=== PATIENT | male | born 1935 | race Caucasian/White ===

== ENCOUNTER 2025-03-18 23:50 | Observation (INO) | payer MEDICARE, SELFPAY ==
--- NOTE | ~2025-03-18 | XR_ITS ---
CHEST RADIOGRAPH, PA AND LATERAL CLINICAL HISTORY: weakness fall . COMPARISON: None available TECHNIQUE: PA and lateral views of the chest. FINDINGS The cardiomediastinal silhouette is enlarged. The lungs are clear. IMPRESSION: No focal infiltrate or effusion. Reviewed, dictated and finalized at location A.
--- NOTE | ~2025-03-18 | XR_ITS ---
EXAM: XR hip BI 2V w AP pelvis DATE: 03/19/2025 16:27 HISTORY: Bilateral hip pain . COMPARISON: None available. FINDINGS: Severe multilevel lumbar degenerative disc disease. Osteopenia. Mild bilateral hip osteoar thritis. Mild scattered enthesopathy. No fracture or dislocation. No lytic or blastic lesion. IMPRESSION: No acute osseous finding in the pelvis or bilateral hips. Reviewed, dictated and finalized at location K.
--- NOTE | ~2025-03-18 | CT_ITS ---
History: Fall PROCEDURE: CT head without contrast. COMPARISON: None TECHNIQUE: Axial imaging of the head performed from the skull base to the vertex without IV contrast. Sagittal a nd coronal reformations obtained. DLP: 681 mGy-cm FINDINGS: The ventricles are enlarged. The dilatation of the ventricles is proportional to the degree of sulcal prominence, not uncommon in the senescent brain. Decreased attenuation is identified within the periventricular white matter, likely secondary to micr ovascular ischemic disease, in a patient of this age. There is no mass, mass effect or midline shift. There is no abnormal extra-axial fluid collection or intracranial hemorrhage. Visualized paranasal sinuses are clear. The mastoid air cells are well aerated. No acute displaced fractures within the overlying cranium. Impression: No acute intracranial hemorrhage or suspicious mass effect. Reviewed, dictated and finalized at location A. Impression: No acute intracranial hemorrhage or suspicious mass effect.
--- NOTE | ~2025-03-18 | XR_ITS ---
HISTORY: Fall COMPARISON: None TECHNIQUE: 3 views of the left knee were performed FINDINGS: No acute or subacute fracture. Medial and lateral tibiofemoral joint space narrowing is identified with sclerosis. No suprapatellar joint effusion is identified. The infrapatellar joint space is clear. IMPRESSION: Degenerative disease without acute fracture. Reviewed, dictated and finalized at location A.
--- NOTE | ~2025-03-18 | XR_ITS ---
HISTORY: Fall COMPARISON: None TECHNIQUE: 3 views of the right knee were performed FINDINGS: No acute or subacute fracture. Medial and lateral tibiofemoral joint space narrowing is identified with sclerosis. No suprapatellar joint effusion is identified. The infrapatellar joint space is clear. IMPRESSION: Degenerative disease without acute fracture. Reviewed, dictated and finalized at location A.
[2025-03-18 23:52] VITALS: BP 145/83; PULSE 83; RESP 18; TEMP 36.2; O2SAT 94
[2025-03-19 00:19] LABS: Hematocrit 41.8 % (42.0-52.0); Hemoglobin 14.0 g/dL (14.0-18.0); Immature Granulocyte Percent A 0.8 % (0-0.5); Lymphocytes Absolute Auto 0.81 K/mm3 (0.9-3.2); Mean Corpuscular HGB Conc 33.5 g/dl (32-36); Mean Corpuscular Hemoglobin 31.3 pg (26-34); Mean Corpuscular Volume 93.3 fl (80-100); Nucleated Red Blood Cells Absolute Auto 0.000 K/mm3 (0.0-0.012); Nucleated Red Blood Cells Perc 0.0 % (0.0-0.2); Platelet Count Result 288 k/mm3 (150-375); Red Blood Count 4.48 M/mm3 (4.6-6.20); White Blood Count 10.6 K/mm3 (4.5-10.0)
[2025-03-19 00:26] LABS: Alanine Aminotransferase 36 U/L (6-50); Albumin Level 4.0 g/dL (3.5-5.1); Alkaline Phosphatase 141 U/L (38-126); Anion Gap 6 mmol/L (4-12); Aspartate Amino Transferase 34 U/L (17-59); Bilirubin,Total 0.7 mg/dL (0.2-1.3); Blood Urea Nitrogen 16 mg/dL (9-20); Calcium 9.3 mg/dL (8.4-10.2); Carbon Dioxide 26 mmol/L (22-30); Chloride 97 mmol/L (98-107); Estimated CRCL calculation 57 ml/min; Estimated Glomerular Filt Rate > 60; Glucose 100 mg/dL (65-110); Potassium 4.2 mmol/L (3.4-5.0); Sodium 129 mmol/L (137-145); Total Protein 6.8 g/dL (6.3-8.2)
[2025-03-19 00:38] LABS: Add Urine Microscopic? YES; Appearance Urine Clear (Clear); Glucose Urine UA Negative (Negative); Leukocyte Esterase Ur 1+ LEU/UL (Negative); Nitrate Urine Negative (Negative); Specific Grav Ur 1.018 (1.001-1.035)
[2025-03-19 00:39] LABS: Non Pathogenic Casts 0-2
--- NOTE | 2025-03-19 00:42 | ECG_ITS ---
Test Date: 2025-03-19 00:42:29 Measurements Intervals [place] Rate: 75 P: 32 PA: 172 QRS: -15 QRSD: 150 T: -12 QT: 419 QTc: 471 Interpretive Statements SINUS RHYTHM RIGHT BUNDLE BRANCH BLOCK [120+ ms QRS DURATION, UPRIGHT V1, 40+ ms S IN I/aVL/V4/V5/V6] ABNORMAL ECG No previous ECG available for comparison Electronically Signed On 03-19-2025 08:16:25 CDT by Wenceslao Rainey M.D.
--- OUTSIDE RECORDS SUMMARY | 2025-03-19 00:53 | XMS_ITS | Data Portability ---
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 Plan of Treatment Reminders Order Date Submit Date Provider Last Modified By Organization Details Last Modified Time Details Appointments None recorded. Lab uric acid, serum or plasma 2024 025 [facility] Out[facility] Lab, [address] [place], [address], 5 18:03:23 CBC w/ auto diff 2024 025 [facility] Out[facility] Lab, [address] [place], [address], 5 17:59:06 CMP, serum or plasma 2024 025 [facility] Outpatient Lab, [address] [place], [address], 5 18:03:19 uric acid, serum or plasma 2023 024 [facility] Outpatient Lab, [address] [place], [address], 4 19:33:47 CBC w/ auto diff 2023 024 [facility] Out[facility] Lab, [address] [place], [address], 4 16:44:48 CMP, serum or plasma 2023 024 [facility] Outpatient Lab, [address] [place], [address], 4 19:33:25 lipid panel, serum 2023 024 [facility] Outpatient Lab, [address] [place], [address], 4 19:33:45 TSH, serum or plasma 2023 024 [facility], [address] [place], [address], 4 19:49:53 T4, free, serum 2023 [facility] Lab, [address] [place], [address], 4 19:48:28 Referral None recorded. Procedures None recorded. Surgeries None recorded. Imaging None recorded. Medication Orders methylpredn isolone 4 mg tablets in a dose pack [address] [facility] #[id number], [address] [facility], [place], [address], 5 15:57:30 Patient TargetsNo targets recorded. Patient Instructions Encounter Date Encounter Id Patient Instructions Last Modified By Organization Details Last Modified Time 12/13/2023 [id number] Near syncope, hypertension, gout and GERD all clinically stable. Will check blood work consisting of CBC, CMP, lipid, uric acid and thyroid. Continue on current Rx follow-up in four months Next Appointment: 4 Months Approximate Date: 04/11/2024 Portions of the record may have been created with voice recognition software. Occasional wrong-word or arqye-g-unso substitutions may have occurred due to the inherent limitations of voice recognition software. Read the chart carefully and recognize, using context, where substitutions have occurred. [email or web address] Not available 12/13/2023 15:12:14 04/17/2024 [id number] dementia rating scale-2* [email or web address] Not available 04/17/2024 15:14:40 alcohol misuse* Not available 04/17/2024 15:14:40 depression screening* Not available 04/17/2024 15:14:40 Timed Up and Go test (TUG)* [email or web address] Not available 04/17/2024 15:14:40 multi-dimensiona l health assessment questionnaire* [email or web address] Not available 04/17/2024 15:14:40 Personalized a [facility] Plan and Screening Recommendations Advance Directives - Do you have one? No Not interested at this time Advance Directives - Do we have your advance directive on file in your health record? Primary Prevention/Interven tion (prevents or decreases the chance of common diseases from occurring) Smoking Risk: Non Smoker Alcohol Misuse Screening: Negative Weight: Overweight try to lose 10% of your body weight Physical activity: Need more exercise/physical activity Nutrition: Average Eat heart healthy diet Fall Risk (screened today): Intermediate Recommend regular use of cane or walker Vaccines Pneumococcal: No further needed Influenza: Your next one in the fall of this year Chronic Disease Risks Stroke: Intermediate Risk Active diagnosis, Continue current treatment plan Heart Attack: Intermediate Risk Active diagnosis, Continue current treatment plan Clogging of the Arteries: Intermediate Risk Active diagnosis, Continue current treatment plan Diabetes: Intermediate Risk Active diagnosis, Continue current treatment plan Secondary Prevention/Interven tion (detects treatable diseases before they may cause symptoms, disability, or ) Prostate Cancer Screening: No PSA screening necessary Colon Cancer Screening: Colonoscopy No screening necessary Date Screening Last Performed: Eye Disease Screening: Your next exam in: goes every 6 wks Dementia Risk: Low I have no recommendations Depression Screening: Negative I have no recommendations [email or web address] Not available 04/17/2024 15:08:39 Medicare wellnes s evaluation risk assessment stable. Follow-up for hypertension, GERD, gout, altered stool function. Plan this time is to continue on current Rx. Will check no blood work at this time. Will check a CT scan of the abdomen and pelvis with oral contrast to further assess this change in bowel habits. Otherwise is doing well in general. Follow-up in four months. Additional Orders - Directives - Recommendations 1. CT scan of abdomen pelvis with contrast for altered bowel function And lower left quadrant pain Next Appointment: 4 Months Approximate Date: 08/15/2024 Portions of the record may have been created with voice recognition software. Occasional wrong-word or rmzfd-v-[id number] substitutions may have occurred due to the inherent limitations of voice recognition software. Read the chart carefully and recognize, using context, where substitutions have occurred. Not available 04/17/2024 15:14:21 09/09/2024 [id number] Follow-up essent ial hypertension, GERD, gout all clinically stable. No interval complaints of any new problems. Continue on current medications check blood work in the form of CBC, CMP and uric acid level. Continue on current Rx follow-up in four months Follow Up: 4 Months Approximate Date: 01/07/2025 Portions of the record may have been created with voice recognition software. Occasional wrong-word or ftwqu-h-pzkj substitutions may have occurred due to the inherent limitations of voice recognition software. Read the chart carefully and recognize, using context, where substitutions have occurred. Created: Nilda Moore M.D. 09.09.2024 03:24 PM [email or web address] Not available 09/09/2024 16:24:52 01/08/2025 [id number] Follow-up essent ial hypertension, GERD, gout as well as kidney stones. All clinically stable at this time. No interval complaints of any new problems. Had blood work performed back in August which looked good. See no reason to repeat any at this time. Will continue on current Rx and recheck back in four months Follow Up: 4 Months Approximate Date: 05/08/2025 Portions of record are template driven. When necessary additional context will be provided. Additionally some portions have been created with voice recognition software. Occasional wrong-word or sopxd-i-jymf substitutions may have occurred due to the inherent limitations of voice recognition software. Read the chart carefully and recognize, using context, where substitutions may have occurred. Created: Nilda Moore M.D. 01.08.2025 04:01 PM [email or web address] Not available 01/08/2025 17:01:12 02/13/2025 [id number] Bilateral ischia l bursitis. Plan to give a trial of a Medrol Dosepak. Place ice on the area possibly alternating with heat now. Instructed family to let us know in the next 12:48 p.m. Status. Instructed to use Tylenol for pain. Keep Appointment: Mon 03:50 PM [place] Portions of record are template driven. When necessary additional context will be provided. Additionally some portions have been created with voice recognition software. Occasional wrong-word or jazfw-z-tros substitutions may have occurred due to the inherent limitations of voice recognition software. Read the chart carefully and recognize, using context, where substitutions may have occurred. Created: Nilda Moore M.D. 02.13.2025 02:57 PM [email or web address] Not available 02/13/2025 15:57:18 Reason for Referral None Reported. Results Created Date Observation Date Name Description Value Unit Range Abnormal Flag Note LastModifiedBy Organization Detail LastModifiedTime 12/13/1912/13/2023 CBC/C OMPLE TE BLD COUNT W/DIF F white blood cells 5.7 x10'3 /uL 4.2-10 .8 Not Available [facility] (Lab) [address] [place], [address], 12/13/2023 16:44:48 12/13/19 24 12/13/2023 CBC/C OMPLE TE BLD COUNT W/DIF F red blood cells 4.49 x10'6 /uL 4.10-5 .80 Not Available [facility] (Lab) [address] [place], [address], 12/13/2023 16:44:48 12/13/19 24 12/13/2023 CBC/C OMPLE TE BLD COUNT W/DIF F hemoglobin 14.3 g/dL 13.2-1 7.0 Not Available [facility] (Lab) [address] [place], [address], 12/13/2023 16:44:48 12/13/19 24 12/13/2023 CBC/C OMPLE TE BLD COUNT W/DIF F hematocrit 42.0 % 39.3-5 0.0 Not Available [facility] (Lab) [address] [place], [address], 12/13/2023 16:44:48 12/13/19 24 12/13/2023 CBC/C OMPLE TE BLD COUNT W/DIF F mean red cell volume 93.5 fL 80.0-9 7.0 Not Available [facility] (Lab) [address] [place], [address], 12/13/2023 16:44:48 12/13/19 24 12/13/2023 CBC/C OMPLE TE BLD COUNT W/DIF F mean red cell hemoglobin 31.8 pg 27.0-3 3.0 Not Available [facility] (Lab) [address] [place], [address], 12/13/2023 16:44:48 12/13/1912/13/2023 CBC/C OMPLE TE BLD COUNT W/DIF F mean RBC HGB concentratio n 34.0 g/dL 31.0-3 6.0 Not Available [facility] (Lab) [address] [place], [address], 12/13/2023 16:44:48 12/13/19 24 12/13/2023 CBC/C OMPLE TE BLD COUNT W/DIF F red cell distribution width 14.3 % 11.8-1 5.5 Not Available [facility] (Lab) [address] [place], [address], 12/13/2023 16:44:48 12/13/19 24 12/13/2023 CBC/C OMPLE TE BLD COUNT W/DIF F platelets 247 x10'3 /uL 150-40 0 Not Available [facility] (Lab) [address] [place], [address], 12/13/2023 16:44:48 12/13/19 24 12/13/2023 CBC/C OMPLE TE BLD COUNT W/DIF F mean platelet volume 8.8 fL 9.0-12 .4 low Not Available [facility] (Lab) [address] [place], [address], 12/13/2023 16:44:48 12/13/19 24 12/13/2023 CBC/C OMPLE TE BLD COUNT W/DIF F neutrophils 63.6 % 39.0-7 2.0 Not Available [facility] (Lab) [address] [place], [address], 12/13/2023 16:44:48 12/13/19 24 12/13/2023 CBC/C OMPLE TE BLD COUNT W/DIF F lymphocytes 19.9 % 16.0-4 7.0 Not Available [facility] (Lab) [address] [place], [address], 12/13/2023 16:44:48 12/13/19 24 12/13/2023 CBC/C OMPLE TE BLD COUNT W/DIF F monocytes 12.4 % 5.0-12 .0 high Not Available [facility] (Lab) [address] [place], [address], 12/13/2023 16:44:48 12/13/19 24 12/13/2023 CBC/C OMPLE TE BLD COUNT W/DIF F eosinophils 3.3 % 1.0-7. 0 Not Available [facility] (Lab) [address] [place], [address], 12/13/2023 16:44:48 12/13/19 24 12/13/2023 CBC/C OMPLE TE BLD COUNT W/DIF F basophils 0.5 % 0.0-2. 0 Not Available [facility] (Lab) [address] [place], [address], 12/13/2023 16:44:48 12/13/19 24 12/13/2023 CBC/C OMPLE TE BLD COUNT W/DIF F immature granulocytes 0.3 % 0.00-0 .50 Not Available [facility] (Lab) [address] [place], [address], 12/13/2023 16:44:48 12/13/19 24 12/13/2023 CBC/C OMPLE TE BLD COUNT W/DIF F neutrophils, absolute count 3.65 x10'3 /uL 1.5-8. 0 Not Available [facility] (Lab) [address] [place], [address], 12/13/2023 16:44:48 12/13/19 24 12/13/2023 CBC/C OMPLE TE BLD COUNT W/DIF F lymphocytes, absolute count 1.14 x10'3 /uL 1.07-3 .43 Not Available [facility] (Lab) [address] [place], [address], 12/13/2023 16:44:48 12/13/19 24 12/13/2023 CBC/C OMPLE TE BLD COUNT W/DIF F monocytes, absolute count 0.71 x10'3 /uL 0.29-0 .99 Not Available [facility] (Lab) [address] [place], [address], 12/13/2023 16:44:48 12/13/19 24 12/13/2023 CBC/C OMPLE TE BLD COUNT W/DIF F eosinophils, absolute count 0.19 x10'3 /uL 0.02-0 .53 Not Available [facility] (Lab) [address] [place], [address], 12/13/2023 16:44:48 12/13/19 24 12/13/2023 CBC/C OMPLE TE BLD COUNT W/DIF F basophils, absolute count 0.03 x10'3 /uL 0.01-0 .08 Not Available [facility] (Lab) [address] [place], [address], 12/13/2023 16:44:48 12/13/19 24 12/13/2023 CBC/C OMPLE TE BLD COUNT W/DIF F immature granulocytes ,absolute 0.02 x10'3 /uL 0.00-0 .05 Not Available [facility] (Lab) [address] [place], [address], 12/13/2023 16:44:48 12/13/19 24 12/13/2023 CBC/C OMPLE TE BLD COUNT W/DIF F nucleated red blood cells 0.0 % -0 Not Available [facility] (Lab) [address] [place], [address], 12/13/2023 16:44:48 12/13/19 24 12/13/2023 CBC/C OMPLE TE BLD COUNT W/DIF F NRBC# 0.00 x10'3 /uL Not Available [facility] (Lab) [address] [place], [address], 12/13/2023 16:44:48 12/13/19 24 12/13/2023 COMPR EHENS GO METAB OLIC PANEL sodium 134 mmol/ L 137-14 5 low Not Available [facility] (Lab) [address] [place], [address], 12/13/2023 19:33:40 12/13/19 24 12/13/2023 COMPR EHENS GO METAB OLIC PANEL potassium 4.0 mmol/ L 3.5-5. 1 Not Available [facility] (Lab) [address] [place], [address], 12/13/2023 19:33:40 12/13/19 24 12/13/2023 COMPR EHENS GO METAB OLIC PANEL chloride 100 mmol/ L 98-107 Not Available [facility] (Lab) [address] [place], [address], 12/13/2023 19:33:40 12/13/19 24 12/13/2023 COMPR EHENS GO METAB OLIC PANEL carbon dioxide 31 mmol/ L 22-30 high Not Available [facility] (Lab) [address] [place], [address], 12/13/2023 19:33:40 12/13/19 24 12/13/2023 COMPR EHENS GO METAB OLIC PANEL anion gap 7.0 mmol/ L 14-22 low Not Available [facility] (Lab) [address] [place], [address], 12/13/2023 19:33:40 12/13/19 24 12/13/2023 COMPR EHENS GO METAB OLIC PANEL glucose 93 mg/dL 70-99 Not Available [facility] (Lab) [address] [place], [address], 12/13/2023 19:33:40 12/13/19 24 12/13/2023 COMPR EHENS GO METAB OLIC PANEL BUN 12 mg/dL 8-19 Not Available [facility] (Lab) [address] [place], [address], 12/13/2023 19:33:40 12/13/19 24 12/13/2023 COMPR EHENS GO METAB OLIC PANEL creatinine 0.73 mg/dL 0.66-1 .25 Not Available [facility] (Lab) [address] [place], [address], 12/13/2023 19:33:40 12/13/19 24 12/13/2023 COMPR EHENS GO METAB OLIC PANEL GFR >60 Refer ence Range : [place] ge GFR Healt hy Adult : >60 mL/mi n/1.7 3 m2 Chron ic Kidne y Disea se: 15-60 mL/mi n/1.7 3 m2 Kidne y Failu re: <15/m L/min /1.73 m2 www.n iddk. nih.g ov The MDRD study equat ion has not been valid ated in child justin <18 years of age; pregn ant women ; the elder ly >85 years of age; or in some racia l or ethni c subgr oups, such as Hispa nics. Outsi de the valid ated moreno eters , estim ated GFR is less accur ate, requi ring clini benja judgm ent on a case- by-ca se basis . Clini benja inter preta tion for other races and ages must be made by the clini nic. The MDRD study equat ion has not been valid ated for the evalu ation of serum creat inine relat ed to nutri valeria l statu s or medic ation usage . For perso ns <18 years of age, a pedia tric GFR calcu lator is avail able on the NK websi te: https ://ww w.kid gillian.o rg/pr ofess ional s/kdo qi/gf r_cal culat or Not Available [facility] (Lab) [address] [place], [address], 12/13/2023 19:33:40 12/13/19 24 12/13/2023 COMPR EHENS GO METAB OLIC PANEL alkaline phosphatase 95 U/L 38-126 Not Available [facility] (Lab) [address] [place], [address], 12/13/2023 19:33:40 12/13/19 24 12/13/2023 COMPR EHENS GO METAB OLIC PANEL alanine aminotransfe rase 13 U/L 0-50 Not Available [facility] (Lab) [address] [place], [address], 12/13/2023 19:33:40 12/13/19 24 12/13/2023 COMPR EHENS GO METAB OLIC PANEL aspartate aminotransfe rase 26 U/L 15-46 Not Available [facility] (Lab) [address] [place], [address], 12/13/2023 19:33:40 12/13/19 24 12/13/2023 COMPR EHENS GO METAB OLIC PANEL bilirubin, total 1.00 mg/dL 0.20-1 .30 Not Available [facility] (Lab) [address] [place], [address], 12/13/2023 19:33:40 12/13/19 24 12/13/2023 COMPR EHENS GO METAB OLIC PANEL calcium 9.3 mg/dL 8.4-10 .2 Not Available [facility] (Lab) [address] [place], [address], 12/13/2023 19:33:40 12/13/19 24 12/13/2023 COMPR EHENS GO METAB OLIC PANEL total protein 6.7 g/dL 6.3-8. 2 Not Available [facility] (Lab) [address] [place], [address], 12/13/2023 19:33:40 12/13/19 24 12/13/2023 COMPR EHENS GO METAB OLIC PANEL albumin 4.3 g/dL 3.0-4. 4 Not Available [facility] (Lab) [address] [place], [address], 12/13/2023 19:33:40 12/13/19 24 12/13/2023 COMPR EHENS GO METAB OLIC PANEL globulin 2.4 g/dL 2.6-4. 2 low Not Available [facility] (Lab) [address] [place], [address], 12/13/2023 19:33:40 12/13/19 24 12/13/2023 COMPR EHENS GO METAB OLIC PANEL A/G ratio 1.8 ratio 1.0-2. 0 Not Available [facility] (Lab) [address] [place], [address], 12/13/2023 19:33:40 12/13/19 24 12/13/2023 LIPID PANEL cholesterol 182 mg/dL 140-19 9 NIH NOEMÍ NSUS RECOM MENDA TION FOR COREY STERO L: ADULT CHILD LOW RISK: <200 <170 BORDE RLINE : <200- 239 ----- HIGH RISK: >240 >200 Not Available [facility] (Lab) [address] [place], [address], 12/13/2023 19:33:45 12/13/19 24 12/13/2023 LIPID PANEL triglyceride s 97 mg/dL 0-150 NIH NOEMÍ NSUS REPOR T RECOM MENDA TION FOR TRIGL YCERI KIKI: ADULT CHILD LOW RISK: <150 ----- BODER LINE: 150-1 99 ----- HIGH RISK: >200 ----- Not Available [facility] (Lab) [address] [place], [address], 12/13/2023 19:33:45 12/13/19 24 12/13/2023 LIPID PANEL HDL cholesterol 64 mg/dL 40- Not Available [facility] (Lab) [address] [place], [address], 12/13/2023 19:33:45 12/13/19 24 12/13/2023 LIPID PANEL LDL cholesterol, calculated 99 mg/dL 0-130 NIH NOEMÍ NSUS REPOR T RECOM MENDA TIONS FOR LDL: ADULT CHILD LOW RISK <130 <110 (OPTI MAL LDL) <100 ----- BORDE RLINE : 130-1 59 ----- HIGH RISK: >160 >130 A TRIGL YCERI DE RESUL T >400 INVAL IDATE S THE CALCU LATIO N FOR LDL FRACT IONAT ION - THE LDL RESUL T WILL NOT BE REPOR KITTY. Not Available [facility] (Lab) [address] [place], [address], 12/13/2023 19:33:45 12/13/1912/13/2023 URIC ACID SERUM uric acid 3.6 mg/dL 3.5-8. 5 Not Available [facility] (Lab) [address] [place], [address], 12/13/2023 19:33:47 12/13/19 24 12/13/2023 T4 FREE free T4 1.14 NG/dL 0.78-2 .19 Not Available [facility] (Lab) [address] [place], [address], 12/13/2023 19:48:27 12/13/19 24 12/13/2023 TSH thyroid-stim ulating hormone 2.390 uIU/m L 0.465- 4.680 Not Available [facility] (Lab) [address] [place], [address], 12/13/2023 19:49:53 05/07/2005/07/2024 CREAT ININE , I-STA T creatinine 0.8 mg/dL 0.6-1. 3 Not Available [facility] (Lab) [address] [place], [address], 05/07/2024 18:19:10 09/09/19 25 09/09/2024 CBC/C OMPLE TE BLD COUNT W/DIF F white blood cells 6.2 x10'3 /uL 4.2-10 .8 Not Available [facility] (Lab) [address] [place], [address], 09/09/2024 17:59:05 09/09/19 25 09/09/2024 CBC/C OMPLE TE BLD COUNT W/DIF F red blood cells 4.44 x10'6 /uL 4.10-5 .80 Not Available [facility] (Lab) [address] [place], [address], 09/09/2024 17:59:05 09/09/19 25 09/09/2024 CBC/C OMPLE TE BLD COUNT W/DIF F hemoglobin 14.1 g/dL 13.2-1 7.0 Not Available [facility] (Lab) [address] [place], [address], 09/09/2024 17:59:05 09/09/19 25 09/09/2024 CBC/C OMPLE TE BLD COUNT W/DIF F hematocrit 41.7 % 39.3-5 0.0 Not Available [facility] (Lab) [address] [place], [address], 09/09/2024 17:59:05 09/09/19 25 09/09/2024 CBC/C OMPLE TE BLD COUNT W/DIF F mean red cell volume 93.9 fL 80.0-9 7.0 Not Available [facility] [address] [facility] [place] [place], [address], 09/09/2024 17:59:05 09/09/19 25 09/09/2024 CBC/C OMPLE TE BLD COUNT W/DIF F mean red cell hemoglobin 31.8 pg 27.0-3 3.0 Not Available [facility] (Lab) [address] [place], [address], 09/09/2024 17:59:05 09/09/19 25 09/09/2024 CBC/C OMPLE TE BLD COUNT W/DIF F mean RBC HGB concentratio n 33.8 g/dL 31.0-3 6.0 Not Available [facility] (Lab) [address] [place], [address], 09/09/2024 17:59:05 09/09/19 25 09/09/2024 CBC/C OMPLE TE BLD COUNT W/DIF F red cell distribution width 14.9 % 11.8-1 5.5 Not Available [facility] (Lab) [address] [place], [address], 09/09/2024 17:59:05 09/09/19 25 09/09/2024 CBC/C OMPLE TE BLD COUNT W/DIF F platelets 236 x10'3 /uL 150-40 0 Not Available [facility] (Lab) [address] [place], [address], 09/09/2024 17:59:05 09/09/19 25 09/09/2024 CBC/C OMPLE TE BLD COUNT W/DIF F mean platelet volume 9.0 fL 9.0-12 .4 Not Available [facility] (Lab) [address] [place], [address], 09/09/2024 17:59:05 09/09/19 25 09/09/2024 CBC/C OMPLE TE BLD COUNT W/DIF F neutrophils 65.7 % 39.0-7 2.0 Not Available [facility] (Lab) [address] [place], [address], 09/09/2024 17:59:05 09/09/19 25 09/09/2024 CBC/C OMPLE TE BLD COUNT W/DIF F lymphocytes 18.8 % 16.0-4 7.0 Not Available [facility] (Lab) [address] [place], [address], 09/09/2024 17:59:05 09/09/19 25 09/09/2024 CBC/C OMPLE TE BLD COUNT W/DIF F monocytes 12.0 % 5.0-12 .0 Not Available [facility] (Lab) [address] [place], [address], 09/09/2024 17:59:05 09/09/19 25 09/09/2024 CBC/C OMPLE TE BLD COUNT W/DIF F eosinophils 2.8 % 1.0-7. 0 Not Available [facility] (Lab) [address] [place], [address], 09/09/2024 17:59:05 09/09/19 25 09/09/2024 CBC/C OMPLE TE BLD COUNT W/DIF F basophils 0.2 % 0.0-2. 0 Not Available [facility] (Lab) [address] [place], [address], 09/09/2024 17:59:05 09/09/19 25 09/09/2024 CBC/C OMPLE TE BLD COUNT W/DIF F immature granulocytes 0.5 % 0.00-0 .50 Not Available [facility] (Lab) [address] [place], [address], 09/09/2024 17:59:05 09/09/19 25 09/09/2024 CBC/C OMPLE TE BLD COUNT W/DIF F neutrophils, absolute count 4.07 x10'3 /uL 1.5-8. 0 Not Available [facility] (Lab) [address] [place], [address], 09/09/2024 17:59:05 09/09/19 25 09/09/2024 CBC/C OMPLE TE BLD COUNT W/DIF F lymphocytes, absolute count 1.16 x10'3 /uL 1.07-3 .43 Not Available [facility] (Lab) [address] [place], [address], 09/09/2024 17:59:05 09/09/19 25 09/09/2024 CBC/C OMPLE TE BLD COUNT W/DIF F monocytes, absolute count 0.74 x10'3 /uL 0.29-0 .99 Not Available [facility] (Lab) [address] [place], [address], 09/09/2024 17:59:05 09/09/19 25 09/09/2024 CBC/C OMPLE TE BLD COUNT W/DIF F eosinophils, absolute count 0.17 x10'3 /uL 0.02-0 .53 Not Available [facility] (Lab) [address] [place], [address], 09/09/2024 17:59:05 09/09/19 25 09/09/2024 CBC/C OMPLE TE BLD COUNT W/DIF F basophils, absolute count 0.01 x10'3 /uL 0.01-0 .08 Not Available [facility] (Lab) [address] [place], [address], 09/09/2024 17:59:05 09/09/19 25 09/09/2024 CBC/C OMPLE TE BLD COUNT W/DIF F immature granulocytes ,absolute 0.03 x10'3 /uL 0.00-0 .05 Not Available [facility] (Lab) [address] [place], [address], 09/09/2024 17:59:05 09/09/19 25 09/09/2024 CBC/C OMPLE TE BLD COUNT W/DIF F nucleated red blood cells 0.0 % -0 Not Available [facility] (Lab) [address] [place], [address], 09/09/2024 17:59:05 09/09/19 25 09/09/2024 CBC/C OMPLE TE BLD COUNT W/DIF F NRBC# 0.00 x10'3 /uL Not Available [facility] (Lab) [address] [place], [address], 09/09/2024 17:59:05 09/09/19 25 09/09/2024 COMPR EHENS GO METAB OLIC PANEL sodium 137 mmol/ L 137-14 5 Not Available [facility] (Lab) [address] [place], [address], 09/09/2024 18:03:19 09/09/19 25 09/09/2024 COMPR EHENS GO METAB OLIC PANEL potassium 3.9 mmol/ L 3.5-5. 1 Not Available [facility] (Lab) [address] [place], [address], 09/09/2024 18:03:19 09/09/19 25 09/09/2024 COMPR EHENS GO METAB OLIC PANEL chloride 103 mmol/ L 98-107 Not Available [facility] (Lab) [address] [place], [address], 09/09/2024 18:03:19 09/09/19 25 09/09/2024 COMPR EHENS GO METAB OLIC PANEL carbon dioxide 32 mmol/ L 22-30 high Not Available [facility] (Lab) [address] [place], [address], 09/09/2024 18:03:19 09/09/19 25 09/09/2024 COMPR EHENS GO METAB OLIC PANEL anion gap 5.9 mmol/ L 14-22 low Not Available [facility] (Lab) [address] [place], [address], 09/09/2024 18:03:19 09/09/19 25 09/09/2024 COMPR EHENS GO METAB OLIC PANEL glucose 89 mg/dL 70-99 Not Available [facility] (Lab) [address] [place], [address], 09/09/2024 18:03:19 09/09/19 25 09/09/2024 COMPR EHENS GO METAB OLIC PANEL BUN 15 mg/dL 8-19 Not Available [facility] (Lab) [address] [place], [address], 09/09/2024 18:03:19 09/09/19 25 09/09/2024 COMPR EHENS GO METAB OLIC PANEL creatinine 0.70 mg/dL 0.66-1 .25 Not Available [facility] (Lab) [address] [place], [address], 09/09/2024 18:03:19 09/09/19 25 09/09/2024 COMPR EHENS GO METAB OLIC PANEL GFR >60 Refer ence Range : [place] ge GFR Healt hy Adult : >60 mL/mi n/1.7 3 m2 Chron ic Kidne y Disea se: 15-60 mL/mi n/1.7 3 m2 Kidne y Failu re: <15/m L/min /1.73 m2 www.n iddk. nih.g ov The MDRD study equat ion has not been valid ated in child justin <18 years of age; pregn ant women ; the elder ly >85 years of age; or in some racia l or ethni c subgr oups, such as Hispa nics. Outsi de the valid ated moreno eters , estim ated GFR is less accur ate, requi ring clini benja judgm ent on a case- by-ca se basis . Clini benja inter preta tion for other races and ages must be made by the clini nic. The MDRD study equat ion has not been valid ated for the evalu ation of serum creat inine relat ed to nutri valeria l statu s or medic ation usage . For perso ns <18 years of age, a pedia tric GFR calcu lator is avail able on the [facility] websi te: https ://luis w.brian french.o jai/pr ofess ional s/kdo qi/gf r_cal culat or Not Available [facility] (Lab) [address] [place], [address], 09/09/2024 18:03:19 09/09/19 25 09/09/2024 COMPR EHENS GO METAB OLIC PANEL alkaline phosphatase 108 U/L 38-126 Not Available [facility] (Lab) [address] [place], [address], 09/09/2024 18:03:19 09/09/19 25 09/09/2024 COMPR EHENS GO METAB OLIC PANEL alanine aminotransfe rase 16 U/L 0-50 Not Available [facility] (Lab) [address] [place], [address], 09/09/2024 18:03:19 09/09/19 25 09/09/2024 COMPR EHENS GO METAB OLIC PANEL aspartate aminotransfe rase 27 U/L 15-46 Not Available [facility] (Lab) [address] [place], [address], 09/09/2024 18:03:19 09/09/19 25 09/09/2024 COMPR EHENS GO METAB OLIC PANEL bilirubin, total 1.20 mg/dL 0.20-1 .30 Not Available [facility] (Lab) [address] [place], [address], 09/09/2024 18:03:19 09/09/19 25 09/09/2024 COMPR EHENS GO METAB OLIC PANEL calcium 9.4 mg/dL 8.4-10 .2 Not Available [facility] (Lab) [address] [place], [address], 09/09/2024 18:03:19 09/09/19 25 09/09/2024 COMPR EHENS GO METAB OLIC PANEL total protein 6.8 g/dL 6.3-8. 2 Not Available [facility] (Lab) [address] [place], [address], 09/09/2024 18:03:19 09/09/19 25 09/09/2024 COMPR EHENS GO METAB OLIC PANEL albumin 4.3 g/dL 3.0-4. 4 Not Available [facility] (Lab) [address] [place], [address], 09/09/2024 18:03:19 09/09/19 25 09/09/2024 COMPR EHENS GO METAB OLIC PANEL globulin 2.5 g/dL 2.6-4. 2 low Not Available [facility] (Lab) [address] [place], [address], 09/09/2024 18:03:19 09/09/19 25 09/09/2024 COMPR EHENS GO METAB OLIC PANEL A/G ratio 1.7 ratio 1.0-2. 0 Not Available [facility] (Lab) [address] [place], [address], 09/09/2024 18:03:19 09/09/19 25 09/09/2024 URIC ACID SERUM uric acid 3.1 mg/dL 3.5-8. 5 low Not Available [facility] (Lab) [address] [place], [address], 09/09/2024 18:03:23 05/07/20 24 05/07/2024 CT, abdom en + pelvi s, w/ contr ast [facility] [address] [place] [address] [phone] Patien t Name: FRANCES MASON Access ion #: [id number] Sex: M : 1935 8 Dictat ed By: Fortunato Sorto Attend ing Physic veronika: ABI MOORE CE Orderi ng Physic veronika: ABI MOORE CE Exam Date: 2023 13:37 PM Exam Name: CT ABDOME N PELVIS W Admitt ing Diagno sis(es ): CT ABDOME N PELVIS W INDICA TION: : 88 old Male llq pain EXAM DATE: 2023 01:37 PM COMPAR JACLYN: None RADIAT ION DOSE: CTDIvo l: 15 mGy, DLP: 780 mGy*cm PROCED URE: Helica l CT images were obtain ed of the abdome n and pelvis with IV contra st Sagitt al and almaguer l recons tructi ons are provid ed. ORAL CONTRA ST: Yes ADDITI ONAL IMAGES / REFORM ATS: None All CT scans at [facility] facili ty are perfor med using dose modula tion techni ques as approp riate to a perfor med exam includ ing the follow ing: Automa kitty exposu re contro l was utiliz ed; adjust ment of the MA and/or KV accord ing to patien t size; and use of iterat go recons tructi on techni que. FINDIN GS: LUNG BASE: Bibasi lar atelec tasis. LIVER: 9.1 cm hepati c cyst at the dome of the liver. GALLBL ADDER AND BILIAR Y TREE: No calcif ied gallst ones. Normal calibe r wall. No intra- or extrah epatic biliar y ductal dilati on. PANCRE : Normal . Page 1 [facility] [address] [place] [address] Patien t Name: FRANCES MASON Access ion #: [id number] Sex: M : 1935 8 Dictat ed By: Fortunato Sorto Attend ing Physic veronika: ROSE MCCARTNEY Orderi Physic veronika: ABI MOORE Exam Date: 2023 13:37 PM Exam Name: CT ABDOME N PELVIS W Admitt ing Diagno sis(es ): SPLEEN : Normal . BOWEL: Oral contra st materi al reache s the rectum . Normal append ix. ADRENA LS: Normal . KIDNEY S AND URETER : 9.9 cm left kidney cyst in the upper pole. BLADDE R: Normal . REPROD UCTIVE ORGANS : Enlarg ed prosta te. LYMPH NODES: No lympha denopa thy. PERITO NEUM: No ascite s or free air. No other fluid collec tion. VESSEL S: Scatte red athero sclero tic calcif icatio ns are noted. Partia lly thombo sed right common iliac artery aneury sm measur es 2.7 cm. RETROP ERITON EUM: Normal . ABDOMI NAL WALL: Normal . BONES: Scatte red osseou s degene rative change s are noted. IMPRES LE: No acute intraa bdomin al abnorm ality. 9.9 cm left kidney cyst in the upper pole. 9.1 cm hepati c cyst at the dome of the liver. Partia lly thombo sed right common iliac artery aneury sm measur es 2.7 cm. Electr onical ly Signed by: Fortunato Sorto at 2023 16:21: 50 PM Page 3 [email or web address] [facility] (Imaging) [address] [place], [address], 05/07/2024 17:35:43 02/14/20 25 02/13/2025 XR, hip + pelvi s, bilat eral, 3 or 4 view [facility] [address] [place] [address] [phone] Patien t Name: FRANCES MASON Access ion #: [id number] Sex: M : 1935 1 Dictat ed By: MILE MCCARTY Attend ing Physic veronika: ROSE MCCARTNEY Physic veronika: ABI MOORE Exam Date: 2024 11:43 AM Exam Name: XR HIP/PE LVIS BILAT 3-4V Admitt ing Diagno sis(es ): Examin ation: XR HIP/PE LVIS BILAT 3-4V Clinic al Indica tion: bilate ral hip pain-n ki, tensio n in bilat hips since couple days. Compar jaclyn: None. Techni que: bilate ral hip images . Findin gs: There is no eviden ce of acute fractu re, disloc ation or osseou s lesion . Degene rative change s in bilate ral hip joints . Soft tissue s are unrema rkable . Impres le: 1. No acute osseou s or soft tissue abnorm ality. 2. Degene rative change s in bilate ral hip joints . Electr onical ly Signed 025 15:06 BIBIANA Perez Electr onical ly Signed by: MILE MCCARTY at 2024 15:06: 00 PM Page 1 [email or web address] [facility] ([facility]) [address] [place], [address], 02/13/2025 17:01:23 Result Notes Documentation Provider Name and Address Organization Details Recorded Time Ct, Abdomen + Pelvis, W/ Contrast : [facility] [address] [place] [address] Patient Name: ANABELA MASON Sex: M : 1935 Dictated By: Fortunato Sorto Attending Physician: NILDA MOORE Ordering Physician: NILDA MOORE Exam Date: 05/07/2024 13:37 PM Exam Name: CT ABDOMEN PELVIS W Admitting Diagnosis(es): CT ABDOMEN PELVIS W INDICATION: : 88 old Male llq pain EXAM DATE: 05/07/2024 01:37 PM COMPARISON: None RADIATION DOSE: CTDIvol: 15 mGy, DLP: 780 mGy*cm PROCEDURE: Helical CT images were obtained of the abdomen and pelvis with IV contrast Sagittal and coronal reconstructions are provided. ORAL CONTRAST: Yes ADDITIONAL IMAGES / REFORMATS: None All CT scans at this medical facility are performed using dose modulation techniques as appropriate to a performed exam including the following: Automated exposure control was utilized; adjustment of the MA and/or KV according to patient size; and use of iterative reconstruction technique. FINDINGS: LUNG BASE: Bibasilar atelectasis. LIVER: 9.1 cm hepatic cyst at the dome of the liver. GALLBLADDER AND BILIARY TREE: No calcified gallstones. Normal caliber wall. No intra- or extrahepatic biliary ductal dilation. PANCREAS: Normal. Page [address] [address] Patient Name: ANABELA MASON Sex: M : 1935 Dictated By: Fortunato Sorto Attending Physician: ROSE MUNGUIA Ordering Physician: NILDA MOORE Exam Date: 05/07/2024 13:37 PM Exam Name: CT ABDOMEN PELVIS W Admitting Diagnosis(es): SPLEEN: Normal. BOWEL: Oral contrast material reaches the rectum. Normal appendix. ADRENALS: Normal. KIDNEYS AND URETER: 9.9 cm left kidney cyst in the upper pole. BLADDER: Normal. REPRODUCTIVE ORGANS: Enlarged prostate. LYMPH NODES:No lymphadenopathy. PERITONEUM: No ascites or free air. No other fluid collection. VESSELS: Scattered atherosclerotic calcifications are noted. 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 RETROPERITONEUM: Normal. ABDOMINAL WALL: Normal. BONES: Scattered osseous degenerative changes are noted. IMPRESSION: No acute intraabdominal abnormality. 9.9 cm left kidney cyst in the upper pole. 9.1 cm hepatic cyst at the dome of the liver. 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 Page 3 Nilda Moore MD [address] [facility], [facility] [address], [place], [address], [facility] [employer] [facility] 05/07/2024 17:35:43 Xr, Hip + Pelvis, Bilateral, 3 Or 4 View : [facility] [address] [place] [address] Patient Name: ANABELA MASON Sex: M : 1935 Dictated By: LESLIE MCCARTY Attending Physician: ROSE MUNGUIA Ordering Physician: NILDA MOORE Exam Date: 02/13/2025 11:43 AM Exam Name: XR HIP/PELVIS BILAT 3-4V Admitting Diagnosis(es): Examination: XR HIP/PELVIS BILAT 3-4V Clinical Indication: bilateral hip pain-nki, tension in bilat hips since couple days. Comparison: None. Technique: bilateral hip images. Findings: There is no evidence of acute fracture, dislocation or osseous lesion. Degenerative changes in bilateral hip joints. Soft tissues are unremarkable. Impression: 1. No acute osseous or soft tissue abnormality. 2. Degenerative changes in bilateral hip joints. Electronically Signed 02/13/2025 15:06 BIBIANA NELSON Page 1 Nilda Moore MD [address], [address] [email or web address], [place], [address], [employer] 02/13/2025 17:01:23 Problems Name Problem SNOMED Code Status Onset Date Resolution Date Notes Provider Name and Address Organization Details Recorded Time Benign essential hypertension 5253672 Active Not Available [facility] 3 09:53:59 Gastroesophag eal reflux disease 312121128 Active Not Available [facility] 3 09:53:59 Right inguinal hernia 693980357 Active Not Available [facility] 3 09:53:59 Inguinal hernia 218686147 Active Not Available [facility] 3 09:53:59 Vertigo 958239619 Active Not Available [facility] 3 09:53:59 Gout 58409238 Active Not Available [facility] 3 09:53:59 Kidney stone 04510193 Active Not Available [facility] 3 09:53:59 Near syncope 062450565 Active 2023 Nilda Moore MD [address], [place], [address] , [place] [employer] [facility] 4 15:07:27 Altered bowel function 86853144 Active 2023 Nilda Moore MD [address], [place] [address], [place], [address] , [facility] 4 15:09:47 Left lower quadrant pain 271574096 Active 2023 Jessy Oliveros null, [facility] 4 15:33:59 Left lower quadrant pain 943646403 Active 2023 Jessy Oliveros null, [facility] 4 15:34:27 COVID-19 623079192 Active 2023 Nilda Moore MD [address], [facility] [address], [place], [address] , [facility] 4 17:25:21 Pain of hip region 75194946 Active 2024 Shameka Painting CMA null, [facility] 5 10:27:40 Ischial bursitis 400456636 Active 2024 Nilda Moore MD [address], [place] [address], [place], [address] , [facility] 5 15:56:39 Pain of hip region 98353311 Active 2024 Shameka Painting CMA null, [facility] 5 12:12:32 Problem Notes None recorded. Procedures Surgical History Date Name Laterality Status Provider Name and Address Organization Details Recorded Time 4 Medicare Wellness CPT Code, subsequent completed Tonja Montana RN [facility] 04/17/2024 15:02:14 3 Medicare Wellness CPT Code, subsequent completed Tonja Montana RN [facility] 04/03/2023 14:53:59 Imaging Results None recorded. Procedure Notes None recorded. Medical Equipment None Reported. Allergies Allergen ID Allergen Name Allergen Category Reaction Reaction Severity Criticality Documentation Date Start Date Code Code System Note Provider Name and Address Organization Details Recorded Time [address] [facility] other Not available Not available 10/19/2022 5487 RxNorm Not Available [facility] 3 06:18:36 Medications Name Sig Start Date Stop Date Status Note LastModified by Organization Details LastModified Time cyanocobala min (vit B-12) 100 mcg tablet Take 5 tablets every day by oral route. 03/09 completed Not Available Not Available Not Available ofloxacin 0.3 % eye drops 12/05 completed Not Available Not Available Not Available hydrochloro thiazide 50 mg tablet Take 1 tablet every day by oral route. 04/29 completed Not Available Not Available Not Available aspirin 81 mg tablet,harmeet yed release Take 1 tablet every day by oral route. 2013 active Not Available Not Available Not Avai lable ketorolac 0.5 % eye drops INSTILL ONE DROP INTO LEFT EYE TWICE DAILY FOR 1 MONTH active Not Available Not Available No t Available prednisolon e acetate 1 % eye drops,suspe nsion INSTILL 1 DROP INTO THE RIGHT EYE EVERY HOUR X1 WEEKOR UNTIL RETINAL SPECIALIS T DECIDES TO STOP active Not Available Not Available No t Available cyanocobala min (vit B-12) 500 mcg tablet Take 1 tablet every day by oral route. 2021 active Not Available Not Available Not Avai lable cyanocobala min (vit B-12) 1,000 mcg/mL injection solution Inject 1 mL every month by intramusc ular route. 03/11 completed Not Available Not Available Not Available lisinopril 10 mg tablet TAKE 1 TABLET DAILY FOR BLOOD PRESSURE 2024 active Not Available Not Available Not Avai lable mometasone 50 mcg/actuati on nasal spray USE 2 SPRAYS IN EACH NOSTRIL ONCE DAILY 09/20 completed Not Available Not Available Not Available lidocaine HCl 3 % topical cream APPLY DIRECTED TO THE AREA TWICE A DAY active Not Available Not Available No t Available dorzolamide 22.3 mg-timolol 6.8 mg/mL eye drops PLACE 1 DROP IN RIGHT EYE TWICE A DAY active Not Available Not Available No t Available allopurinol 300 mg tablet TAKE 1 TABLET DAILY 2024 active Not Available Not Available Not Avai lable furosemide 20 mg tablet TAKE 1 TABLET DAILY active Not Available Not Available No t Available methylpredn isolone 4 mg tablets in a dose pack TAKE 6 TABLETS ON DAY 1 DIRECTED ON PACKAGE AND DECREASE BY 1 TAB EACH DAY FOR A TOTAL OF 6 DAYS active Not Available Not Available No t Available Prolensa 0.07 % eye drops 12/05 completed Not Available Not Available Not Available potassium chloride ER 20 mEq tablet,exte nded release Take 1 tablet every day by oral route. 03/09 completed Not Available Not Available Not Available ICaps AREDS2 daily 12/12 completed Not Available Not Available Not Available ICaps AREDS2 (copper citrate) 250 mg-200 unit-12.5 mg-1 mg tablet Take 1 tablet every day by oral route. active Not Available Not Available No t Available Paxlovid 300 mg (150 mg x 2)-100 mg tablets in a dose pack TAKE TWO OF THE 150MG TABLETS AND ONE OF THE 100MG TABLETS TWICE DAILY FOR FIVE DAYS 09/09 completed Not Available Not Available Not Available Vitals Date Recorded Body height Body mass index (BMI) Body weight Heart rate Body temperature Oxygen saturation Oxygen saturation in Arterial blood by Pulse oximetry Systolic And Diastolic Provider Name and Address Organization Details Last Updated DateTime 5 163.83 cm 28.8 kg/m2 16328.5 g 63 /min 97 [degF] 96 % 96 % 138/70 mm[Hg] [facility] [employer] 5 16:05:40 Date Recorded Body height Body mass index (BMI) Body weight Heart rate Body temperature Oxygen saturation Oxygen saturation in Arterial blood by Pulse oximetry Systolic And Diastolic Provider Name and Address Organization Details Last Updated DateTime 4 163.83 cm 29.6 kg/m2 32529.6 6 g 63 /min 97 [degF] 93 % 93 % 132/78 mm[Hg] [facility] 4 15:03:23 Date Recorded Body height Body mass index (BMI) Body weight Heart rate Body temperature Oxygen saturation Oxygen saturation in Arterial blood by Pulse oximetry Systolic And Diastolic Provider Name and Address Organization Details Last Updated DateTime 5 163.83 cm 29.4 kg/m2 78396.0 7 g 69 /min 97 [degF] 96 % 96 % 120/64 mm[Hg] Bouchra Janak [facility] [employer] [facility] 5 16:50:59 Date Recorded Body height Heart rate Oxygen saturation Oxygen saturation in Arterial blood by Pulse oximetry Systolic And Diastolic Provider Name and Address Organization Details Last Updated DateTime 5 163.83 cm 62 /min 97 % 97 % 134/84 mm[Hg] Shameka Painting CMA [facility] [employer] [facility] 5 15:47:38 Date Recorded Pain severity - 0-10 verbal numeric rating [Score] - Reported Provider Name and Address Organization Details Last Updated DateTime 04/17/2024 0 Tonja Montana RN [facility] [employer] [facility] 04/17/2024 15:02:21 Date Recorded Body height Body mass index (BMI) Body weight Heart rate Body temperature Oxygen saturation Oxygen saturation in Arterial blood by Pulse oximetry Systolic And Diastolic Provider Name and Address Organization Details Last Updated DateTime 4 163.83 cm 29.2 kg/m2 20120.4 8 g 67 /min 98 [degF] 98 % 98 % 112/82 mm[Hg] KAJAL Ramirez [facility] [employer] [facility] 4 14:59:10 Social History Question Answer Notes LastModified by Organizat ion Details LastModified Time Tobacco Smoking Status Never Smoker Not Available [facility] 10/19/2022 06:09:59 Do You Have An Advance Directive? No [id number] Information not available 10/19/2022 Are You Blind Or Do You Have Difficulty Seeing? No MIGRATION.56744 [id number] Information not available 10/19/2022 Are You Deaf Or Do You Have Serious Difficulty Hearing? Yes Has Hearing Aids [email or web address] Information not available 04/17/2024 What Type Of Diet Are You Following? REGULAR MIGRATION.03293 44079 Information not available 10/19/2022 Have There Been Any Changes To Your Family Or Social Situation? No MIGRATION.20877 [id number] Information not available 10/19/2022 What Is The Fluoride Status Of Your Home? Unknown MIGRATION.60415 63840 Information not available 10/19/2022 Are There Any Guns Present In Your Home? No MIGRATION.19449 53557 Information not available 10/19/2022 Do You Use Insect Repellent Routinely? No MIGRATION.68991 00354 Information not available 10/19/2022 Where Do You Live? [place]House MIGRATION.50101 35075 Information not available 10/19/2022 Are You Able To Care For Yourself? Yes [email or web address] Information not available 04/17/2024 Are You Blind Or Do Yo Have Difficulty Seeing? Yes [email or web address] Information not available 04/17/2024 Are You Deaf Or Do You Have Serious Difficulty Hearing? Yes [email or web address] Information not available 04/17/2024 Live Alone Of With Others? With Others [email or web address] Information not available 04/17/2024 Do You Have A Medical Power Of Cocktail Waitress? No MIGRATION.81369 33280 Information not available 10/19/2022 What Was The Date Of Your Most Recent Tobacco Screening? 04/17/2024 [email or web address] Information not available 04/17/2024 Do You Have Any Pets? No MIGRATION.41101 56751 Information not available 10/19/2022 What Is Your Relationship Status? MIGRATION.43056 49704 Information not available 10/19/2022 Do You Use Your Seat Belt Or Car Seat Routinely? Yes MIGRATION.36496 59290 Information not available 10/19/2022 Do You Have Smoke And Carbon Monoxide Detectors In Your Home? Yes MIGRATION.12396 21984 Information not available 10/19/2022 Are You Passively Exposed To Smoke? No MIGRATION.93054 38602 Information not available 10/19/2022 Are There Any Smokers In Your House? No MIGRATION.95494 52595 Information not available 10/19/2022 Do You Use Sunscreen Routinely? No MIGRATION.69588 66351 Information not available 10/19/2022 Have You Recently Traveled Abroad? No MIGRATION.29373 97575 Information not available 10/19/2022 Do You Have Difficulty Walking Or Climbing Stairs? No MIGRATION.51550 15651 Information not available 10/19/2022 Do You Have Any Dietary Restrictions? No MIGRATION.59953 55322 Information not available 10/19/2022 Sex: Male Functional Status Question Answer Note LastModified by Organizat ion Details LastModified Time What is your level of alcohol consumption? None [email or web address] Information not available 04/03/2023 Do you have transportation difficulties? No MIGRATION.[id number] 026 Information not available 10/19/2022 Are you able to walk? YESASSIST [email or web address] Information not available 04/17/2024 Do you have difficulty doing errands alone? No MIGRATION.[id number] 026 Information not available 10/19/2022 Are you able to care for yourself independently? Yes MIGRATION.[id number] 026 Information not available 10/19/2022 Do you have difficulty dressing, bathing, grooming, or toileting? No MIGRATION.[id number] 026 Information not available 10/19/2022 What is your exercise level? None MIGRATION.[id number] 026 Information not available 10/19/2022 Mental Status Question Answer Note LastModified by Organizat ion Details LastModified Time Do you have difficulty concentrating, remembering or making decisions? No [id number] Information not available 10/19/2022 Family History Nothing Reported Notes:Mother 93 yea rs old infirmities Father 79 years old of Parkinsonism and Dementia 1 Brothers 1 Living with CAD 1 Sisters CKD with ERD Medical History Condition Response NERVE DISEASE N BLINDNESS N RHEUMATIC FEVER N KIDNEY STONES N BLADDER PROBLEMS N MRSA N OTHER # 1 N POLIO N LUNG DISEASE/DISORDER N HISTORY OF DRUG ABUSE N RADIATION / CHEMOTHERAPY N COPD N Other # 2 N BLOOD DISEASES N EAR OR HEARING PROBLEMS N MUMPS N SHINGLES N BOWEL PROBLEMS N DEPRESSION (INCLUDING POST ) N STROKE/TIA N ULCERS N BENIGN PROSTATIC HYPERPLASIA N MEASLES N HYPOTENSION N MYOCARDIAL INFARCTION N OBESITY N GERD/NAUSEA N ANEURYSM N URINARY/BLADDER/KIDNEY PROBLEMS N CORONARY ARTERY DISEASE (CAD) N ADDICTION CONCERNS N Impotence N ENDOMETRIOSIS N USE OF BLOOD THINNERS N SKIN PROBLEMS N GASTROINTESTINAL DISORDER N PERIPHERAL VASCULAR DISEASE N MUSCLE,JOINT OR BONE PROBLEMS N GASTROINTESTINAL BLEEDING N BLOOD CLOTS N ASTHMA N CATARACTS N ERECTILE DYSFUNCTION N VARICOSITIES N GI PROBLEMS N Low Testosterone N INFERTILITY N AIDS/HIV N CHEMOTHERAPY / RADIATION N LIVER DISEASE N MALE HYPOGONADISM N HYPERTENSION Y Deficiency N TOURETTE'S N ANXIETY DISORDER N BLOOD TRANSFUSION N ANEMIA/BLOOD DISORDER N CHRONIC EAR INFECTIONS N BRONCHITIS N TUBERCULOSIS N GLAUCOMA N FOOT PROBLEM N DIVERTICULITIS N SLEEP APNEA N CHICKENPOX N INFECTIOUS DISEASE N PROSTATE N HEART ARRHYTHMIA N INSOMNIA N HIGH CHOLESTEROL / HYPERLIPIDEMIA N EYE PROBLEMS N HYPERTHYROIDISM N EDEMA N CHRONIC PAIN SYNDROME N HYPOTHYROIDISM N CONSTIPATION N CAROTID BLOCKAGE N BACK / NECK PROBLEMS N HAVE YOU BEEN HOSPITALIZED OR SEEN IN [facility] IN THE PAST YEAR ? N ATHEROSCLEROSIS N BREAST PROBLEMS N DIALYSIS N ECZEMA N OSTEOPOROSIS N ARTHRITIS N NO SIGNIFICANT PAST MEDICAL HISTORY N APPENDICITIS N DIABETES, TYPE N BAD TEETH N ENT N HEARTBURN / REFLUX N AUTISM SPECTRUM DISORDER (ASD) N HEPATITIS / LIVER DISEASE N GOUT N SLEEP DISORDER N ALZHEIMER'S DISEASE N Brain Problems N DEMENTIA N HERPES N SEIZURES/EPILEPSY N HEADACHES/MIGRAINES N VASCULAR DISEASE N PACEMAKER N Blood Disorder N DIZZINESS N HEART DISEASE/HEART PROBLEMS N KIDNEY DISEASE N MULTIPLE SCLEROSIS N CANCER: SPECIFY N CARDIAC ARRHYTHMIA N ATRIAL FIBRILLATION N Gall Stones N PULMONARY EMBOLISM N AUTOIMMUNE DISEASE N Immunizations Vaccine Type Date Status Note Provider [facility] e and Address Organization Details Recorded Time SARS-COV-2 (COVID-19) vaccine, UNSPECIFIED 3 completed Bouchra corral [facility] 09/08/2023 16:47:31 Respiratory syncytial virus (RSV), unspecified 3 completed Bouchra corral [facility] 09/08/2023 16:47:56 Influenza, split virus, trivalent, preservative 3 completed Not Available Counts include 234 beds at the [facility] 10/19/2022 06:18:26 SARS-COV-2 (COVID-19) vaccine, UNSPECIFIED 2 completed Not Available Counts include 234 beds at the [facility] 10/19/2022 06:18:26 SARS-COV-2 (COVID-19) vaccine, UNSPECIFIED 1 completed Not Available Counts include 234 beds at the [facility] 10/19/2022 06:18:26 SARS-COV-2 (COVID-19) vaccine, UNSPECIFIED 1 completed Not Available Counts include 234 beds at the [facility] 10/19/2022 06:18:26 Influenza, high-dose, trivalent, PF 8 completed Not Available Counts include 234 beds at the [facility] 10/19/2022 06:18:26 Pneumococcal conjugate PCV 13 5 completed Not Available Counts include 234 beds at the [facility] 10/19/2022 06:18:26 Influenza, split virus, trivalent, preservative 4 completed Not Available Counts include 234 beds at the [facility] 10/19/2022 06:18:27 Influenza, high-dose, quadrivalent, PF 1 completed Not Available Counts include 234 beds at the [facility] 10/19/2022 06:18:27 Influenza, high-dose, quadrivalent, PF 0 completed Not Available Counts include 234 beds at the [facility] 10/19/2022 06:18:27 Influenza, high-dose, trivalent, PF 9 completed Not Available Counts include 234 beds at the [facility] 10/19/2022 06:18:27 Influenza, high-dose, quadrivalent, PF 2 completed Not Available Counts include 234 beds at the [facility] 10/19/2022 06:18:27 Influenza, high-dose, trivalent, PF 7 completed Not Available Counts include 234 beds at the [facility] 10/19/2022 06:18:27 Influenza, split virus, quadrivalent, preservative 5 completed Not Available Counts include 234 beds at the [facility] 10/19/2022 06:18:27 Influenza, split virus, quadrivalent, PF 6 completed Not Available Counts include 234 beds at the [facility] 10/19/2022 06:18:27 Influenza, high-dose, quadrivalent, PF 3 completed BETO Dumont [place] [facility] 07/04/2023 15:04:05 Past Encounters Encounter ID Performer Location Encounter Start Date Encounter Closed Date Diagnosis/Indication Diagnosis SNOMED-CT Code Diagnosis ICD10 Code Diagnosis Note [id number] Nilda Moore MD [place] [place] [facility] [address] [address] 03/08/2021 00:00:00 03/08/2021 14:36:02 [id number] Nilda Moore MD [place] [place] [facility] [address] [id number] 09/20/2021 00:00:00 09/20/2021 15:03:28 [id number] Nilda Moore MD [place] [place] [facility] [address] [id number] 03/28/2022 00:00:00 03/28/2022 12:27:03 [id number] Nilda Moore MD [place] [place] [facility] [address] [address] 08/01/2022 00:00:00 08/01/2022 11:56:46 [id number] Nilda Moore MD [facility] Internal Med [facility] [address] [id number] 12/05/2022 14:26:40 12/05/2022 15:07:34 Benign essential hypertension 8309613 I10 Gastroesop hageal reflux disease 197957770 K21.9 Gout 70679709 M10.9 [id number] Nilda Moore MD [facility] Internal Med [facility] [address] [phone] 04/03/2023 14:41:42 04/03/2023 15:22:34 Adult health examination 183267283 Z00.00 Screening for disorder 059530438 Z13.9 Benign ess ential hypertension 8181278 I10 Gastroesop hageal reflux disease 462760406 K21.9 Gout 53503606 M10.9 [id number] Nilda Moore MD [facility] Internal Med [facility] [address] [id number] 08/09/2023 14:38:29 08/09/2023 15:13:59 Benign essential hypertension 2492579 I10 Gastroesop hageal reflux disease 476799180 K21.9 Kidney stone 60251620 N2 0.0 Gout 10580515 M10.9 [id number] Nilda Moore MD [facility] Internal Med [facility] [address] [address] 0 12/13/2023 14:31:59 12/13/2023 15:33:26 Benign essential hypertension 0054386 I10 Gout 76922085 M10.9 Gastroesop hageal reflux disease 191366924 K21.9 Near syncope 802143187 R 55 [id number] Nilda Moore MD [facility] Internal Med [facility] [address] [id number] 0 04/17/2024 14:41:21 04/17/2024 15:16:58 Adult health examination 235737953 Z00.00 Screening for disorder 067666817 Z13.9 Benign ess ential hypertension 3727443 I10 Gastroesop hageal reflux disease 082553292 K21.9 Gout 06099672 M10.9 Altered jimmie wel function 68859235 R19.4 [id number] Nilda Moore MD [facility] Internal Med [facility] [address] [phone] 09/09/2024 15:54:25 09/09/2024 16:28:45 Benign essential hypertension 1869212 I10 Gout 65244004 M10.9 Gastroesop hageal reflux disease 832346675 K21.9 [id number] Nilda Moore MD [facility] Internal Med [facility] [address] [address] 01/08/2025 16:27:41 01/08/2025 17:02:19 Benign essential hypertension 0082471 I10 Gastroesop hageal reflux disease 723788584 K21.9 Gout 67881438 M10.9 Kidney stone 04059561 N2 0.0 [id number] Nilda Moore MD [facility] Internal Med [facility] [address] [id number] 02/13/2025 15:36:37 02/13/2025 15:59:41 Ischial bursitis 992951814 M70.70 Health Concerns Section Related Observation LastModified by Organization Detai ls LastModified Time None Recorded Concern Status LastModified by Organization Details LastModified Time None Recorded Advance Directives Directive N: Payers Insurance Date Sequence Insurance Name Policy Number Policy Trivedi Covered Member ID Trivedi Member ID Guarantor Name 02/13/2025 1 [place] Anabela Mason [id number] Anabela Mason 02/13/2025 2 [place] [id number] Anabela Mason [id number] Anabela Mason
[2025-03-19 01:02] VITALS: BP 129/83; PULSE 80; RESP 18; O2SAT 97
--- NOTE | 2025-03-19 01:51 | ED.GENADULT ---
HPI - General Adult General Chief complaint: Fall Stated complaint: glf x 2 tonight Time Seen by Provider: 03/19/25 00:23 History of Present Illness HPI narrative: This is a pleasant 89 yo male presenting after 2 ground level falls. Patient was taking a shower earlier today. Typically he takes these while sitting down but they were attempting to take 1 while standing. While he was trying to wash his feet accidentally put his foot down on his other foot and lost his balance. He lowered himself to the ground using the guard rail and was on his hands and knees but him and his son were unable to get him back to his feet. He was stuck in the shower while EMS was called when they arrived the rib help him back up into his wheelchair. However later that night he was trying to use the restroom and he felt like his legs were weak and he again lower himself to the ground on his knees. EMS was then called a 2nd time he was brought to the hospital for evaluation. The patient has no complaints such as headache, chest pain difficulty breathing abdominal pain or urinary symptoms. He did not strike his head when he fell. Patient currently lives at home where he gets help from his family and home health twice a week. His is recovering from a fractured hip and is wheelchair bound. Related Data Home Medications ?Medication ?Instructions ?Recorded ?Confirmed ?Last Taken ?Type allopurinol 300 mg tablet 300 mg PO DAILY 01/16/20 08/02/23 Unknown History aspirin 81 mg tablet,delayed 81 mg PO DAILY 01/16/20 08/02/23 Unknown History release (Adult Aspirin Regimen) lisinopril 10 mg tablet 10 mg PO DAILY 01/16/20 08/02/23 Unknown History mecobalamin (vitamin B12) 5,000 5,000 mcg PO DAILY 01/16/20 08/02/23 Unknown History mcg lozenge furosemide 20 mg tablet 20 mg PO DAILY 08/02/23 08/02/23 Unknown History Allergies Allergy/AdvReac Type Severity Reaction Status Date / Time No Known Allergies Allergy Verified 08/02/23 13:39 [facility] Past Medical History Medical History Kidney stones Social History Social History Smoking status: Never smoker Alcohol intake: current Substance use: never Lack of Transportation: No Lack of Food: Never True Current Housing: I Have Housing Concerned About Future Housing: No Difficulty Paying Gas/Electric Bills: No Difficulty Paying for Meds: No Currently Unemployed: No Education: High School Diploma/GED Difficulty w/ Childcare or Family Care: No Exam Narrative: APPEARANCE: No apparent distress. Head: atraumatic. EYES: EOMI, NOSE: Atraumatic NECK: Trachea midline no midline tenderness RESPIRATORY: No increased rate of breathing clear to auscultation CARDIOVASCULAR: RRR, no peripheral edema ABDOMINAL: Non-distended soft nontender MUSCULOSKELETAl: No obvious deformities NEURO: Alert. Cranial nerves 2-12 grossly intact. Sensation light touch, motor function cerebellar function intact for 4 extremities. Gait exam was normal. SKIN:: Warm, dry. Normal color, mild abrasions over the knees bilaterally PSYCHIATRIC: Normal affect Course Vital Signs Vital signs: Vital Signs Temperature 97.1 F L 03/18/25 23:52 Pulse Rate 83 03/18/25 23:52 Respiratory Rate 18 03/18/25 23:52 Blood Pressure 145/83 H 03/18/25 23:52 Pulse Oximetry 94 03/18/25 23:52 Oxygen Delivery Room Air 03/18/25 23:52 Temperature 97.1 F L 03/18/25 23:52 Pulse Rate 80 03/19/25 01:02 Respiratory Rate 18 03/19/25 01:02 Blood Pressure 129/83 03/19/25 01:02 Pulse Oximetry 97 03/19/25 01:02 Oxygen Delivery Room Air 03/18/25 23:52 Medical Decision Making [facility] Narrative Medical decision making narrative: -Course: 89-year-old male presenting to the ED after 2 falls in 1 night. No serious traumatic injuries on exam. X-rays of the chest and knees were unremarkable. CT brain without acute intracranial hemorrhage. Laboratory studies showed a sodium of 129 and chloride of 97. No baseline available. Given 1 L normal saline. Family and I are concerned that the patient is not safe to live on his own. Patient will be placed in observation for PT OT eval and discharge planning. -DDX includes but is not limited to: Debility, sepsis UTI pneumonia dehydration Vital Signs Vital Signs: Vital Signs Temperature 97.1 F L 03/18/25 23:52 Pulse Rate 83 03/18/25 23:52 Respiratory Rate 18 03/18/25 23:52 Blood Pressure 145/83 H 03/18/25 23:52 Pulse Oximetry 94 03/18/25 23:52 Oxygen Delivery Room Air 03/18/25 23:52 Temperature 97.1 F L 03/18/25 23:52 Pulse Rate 80 03/19/25 01:02 Respiratory Rate 18 03/19/25 01:02 Blood Pressure 129/83 03/19/25 01:02 Pulse Oximetry 97 03/19/25 01:02 Oxygen Delivery Room Air 03/18/25 23:52 Lab Data 03/18/25 23:59 03/18/25 23:59 Labs: Lab Results 03/18/25 03/19/25 Range/Units 23:59 00:13 WBC 10.6 H (4.5-10.0) K/mm3 RBC 4.48 L (4.6-6.20) M/mm3 Hgb 14.0 (14.0-18.0) g/dL Hct 41.8 L (42.0-52.0) % MCV 93.3 (80-100) fl MCH 31.3 (26-34) pg MCHC 33.5 (32-36) g/dl RDW 14.4 (11.5-14.5) % Plt Count 288 (150-375) k/mm3 MPV 8.3 (7.4-10.4) fl Immature Gran % (Auto) 0.8 H (0-0.5) % Neut % (Auto) 77.2 H (45.5-73.1) % Lymph % (Auto) 7.7 L (18.3-44.2) % [place] % (Auto) 12.8 H (2.6-8.5) % Eos % (Auto) 1.2 (0-4.4) % Baso % (Auto) 0.3 (0.2-1.2) % Lymph # (Auto) 0.81 L (0.9-3.2) K/mm3 [place] # (Auto) 1.4 H (0.1-0.6) K/mm3 Eos # (Auto) 0.1 (0-0.3) K/mm3 Baso # (Auto) 0.0 (0.0-0.1) K/mm3 Abs Immat Gran (auto) 0.08 H (0.00-0.031) K/mm3 Absolute Neuts (auto) 8.2 H (1.3-6.7) K/mm3 Absolute Nucleated RBC 0.000 (0.0-0.012) K/mm3 Nucleated RBC % 0.0 (0.0-0.2) % Sodium 129 L (137-145) mmol/L Potassium 4.2 (3.4-5.0) mmol/L Chloride 97 L (98-107) mmol/L Carbon Dioxide 26 (22-30) mmol/L Anion Gap 6 (4-12) mmol/L BUN 16 (9-20) mg/dL Creatinine 0.73 (0.7-1.3) mg/dL Estim Creat Clear Calc 57 ml/min Estimated GFR > 60 (59 - ) Glucose 100 (65-110) mg/dL Calcium 9.3 (8.4-10.2) mg/dL Total Bilirubin 0.7 (0.2-1.3) mg/dL AST 34 (17-59) U/L ALT 36 (6-50) U/L Alkaline Phosphatase 141 H (38-126) U/L Total Creatine Kinase 118 (55-170) U/L Total Protein 6.8 (6.3-8.2) g/dL Albumin 4.0 (3.5-5.1) g/dL Urine Color Yellow (Yellow) Urine Appearance Clear (Clear) Urine pH 6.0 (5.0-9.0) Ur Specific [place] 1.018 (1.001-1.035) Urine Protein Trace (Negative) mg/dL Urine Glucose (UA) Negative (Negative) mg/dL Urine Ketones Trace H (Negative) mg/dL Ur Blood (Man) Trace (Negative) Urine Nitrate Negative (Negative) Urine Bilirubin Negative (Negative) Urine Urobilinogen 1.0 (<2.0) mg/dL Leukocyte Esterase Rfl 1+ H (Negative) PAUL/UL Urine RBC 3-5 H (0-2) /hpf Urine WBC 0-5 (0-3) /hpf Ur Squamous Epith Cells None seen (Few) /hpf Urine Bacteria None seen /hpf Urine Casts 0-2 Discharge Plan Discharge Clinical Impression: Frequent falls Patient Disposition: Still a Patient Condition: Stable Patient Language: Montserratian Prescriptions: No Action lisinopril 10 mg tablet 10 mg PO DAILY aspirin [Adult Aspirin Regimen] 81 mg tablet,delayed release (DR/EC) 81 mg PO DAILY mecobalamin (vitamin B12) 5,000 mcg lozenge 5,000 mcg PO DAILY Rx Instructions: allow to dissolve in mouth OR may chew lightly before swallowing allopurinol 300 mg tablet 300 mg PO DAILY furosemide 20 mg tablet 20 mg PO DAILY Follow-up/Referrals: Oscar,Alfonzo Anderson MD [Primary Care Provider] -
[2025-03-19 02:25] LABS: Creatine Kinase 118 U/L (55-170)
[2025-03-19] MEDS: SODIUM CHLORIDE 0.9% IV 1,000 ML 999 ML IV CONT (03:42)
[2025-03-19 03:43] VITALS: BP 127/76; PULSE 78; RESP 18; O2SAT 95
--- NOTE | 2025-03-19 05:38 | P.HP_ITS ---
H&P: HPI History of Present Illness Date/Time: 03/19/25 05:38 Chief Complaint: Two falls at home Narrative: 89-year-old male with a history of kidney stones, hypertension. He arrives to [facility] ER by EMS on 03/19/2025 for 2 ground level falls. He lives with his daughter and there are other family members heavily involved in his care. 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 The patient was taking a shower. Usually uses a see but decided not to because he felt it was too slippery. He then put his right foot over his left foot and lost his balance he lowered himself to the shower floor. EMS was called and he was able to get up with her help. Later he felt weak and lowered himself to the floor again. EMS was summoned once again and he was brought to the ER. He denies any other symptoms reflecting illness. He has not been taking his furosemide for a month because he does not want to get up and urinate often. He was given this for kidney stones. He also takes allopurinol for that. In the ER his blood pressure is 132/80. Afebrile. The patient rested comfortably. Found have a white count of 10.6, sodium 129 with no baseline to compare. Urinalysis largely unremarkable except for 1+ leukocyte esterase but no bacteria nitrates. CT head performed did not demonstrate any acute findings. There is age related cerebral volume loss. On preliminary interpretation of knee x-ray and chest x-ray there is no acute findings. Patient was given 1 L of normal saline. Admitted for physical therapy and further disposition. Review of Systems Review of Systems: All systems reviewed & are unremarkable except as noted in HPI and below (HPI/subjective) [facility] Past Medical History Medical History Kidney stones Social History Social History Smoking status: Former smoker Tobacco type: cigarettes Second hand tobacco smoke exposure: No Alcohol intake: former Substance use: never Substance use type: does not use Lack of Transportation: No Lack of Food: Never True Current Housing: I Have Housing Concerned About Future Housing: No Difficulty Paying Gas/Electric Bills: No Difficulty Paying for Meds: No Currently Unemployed: No Education: Decline to Answer Difficulty w/ Childcare or Family Care: No Spiritual care concerns: No Meds Home Medications and Allergies Home Medications ?Medication ?Instructions ?Recorded ?Confirmed ?Type allopurinol 300 mg tablet 300 mg PO DAILY 01/16/20 03/19/25 History aspirin 81 mg tablet,delayed 81 mg PO DAILY 01/16/20 03/19/25 History release (Adult Aspirin Regimen) lisinopril 10 mg tablet 10 mg PO DAILY 01/16/20 03/19/25 History mecobalamin (vitamin B12) 5,000 5,000 mcg PO DAILY 01/16/20 03/19/25 History mcg lozenge furosemide 20 mg tablet 20 mg PO DAILY 08/02/23 03/19/25 History dorzolamide 22.3 mg-timolol 6.8 1 drp RIGHT EYE .twice 03/19/25 03/19/25 History mg/mL eye drops Allergies Allergy/AdvReac Type Severity Reaction Status Date / Time No Known Allergies Allergy Verified 08/02/23 13:39 Vital Signs Vital Signs - 24 hr 03/18/25 23:52 03/19/25 01:02 03/19/25 03:43 Temperature 97.1 F L Pulse Rate 83 80 78 Respiratory Rate 18 18 18 Blood Pressure 145/83 H 129/83 127/76 Pulse Oximetry 94 97 95 Oxygen Delivery Room Air Exam Const: General: comfortable and no acute distress Other: A&O x3 HENMT: Mouth: Yes moist mucous membranes Eyes: Pupils: Equal, round and reactive pupils present Neck: Neck: supple Resp: Effort & Inspection: normal respiratory effort Auscultation: clear to auscultation bilaterally Cardio: Rate: regular rate Rhythm: regular rhythm GI: Inspection: non-distended GI Palp: Yes Soft to palpation : General: Yes bladder normal to palpation Neuro: Other: Flexion at the hips 3/5 strength bilaterally limited by pain at the lower back which is chronic. Otherwise no focal deficits. Extrem: General: no edema H&P: Results Labs Labs: Short CBC 03/18/25 Range/Units 23:59 WBC 10.6 H (4.5-10.0) K/mm3 Hgb 14.0 (14.0-18.0) g/dL Hct 41.8 L (42.0-52.0) % Plt Count 288 (150-375) k/mm3 BMP 03/18/25 23:59 Sodium 129 L Potassium 4.2 Chloride 97 L Carbon Dioxide 26 BUN 16 Creatinine 0.73 Glucose 100 Calcium 9.3 Cardiac Enzymes 03/18/25 Range/Units 23:59 Total Creatine Kinase 118 (55-170) U/L Liver Function 03/18/25 Range/Units 23:59 Total Bilirubin 0.7 (0.2-1.3) mg/dL AST 34 (17-59) U/L ALT 36 (6-50) U/L Alkaline Phosphatase 141 H (38-126) U/L Albumin 4.0 (3.5-5.1) g/dL Urine 03/19/25 Range/Units 00:13 Urine Color Yellow (Yellow) Urine Appearance Clear (Clear) Urine pH 6.0 (5.0-9.0) Ur Specific [place] 1.018 (1.001-1.035) Urine Protein Trace (Negative) mg/dL Urine Glucose (UA) Negative (Negative) mg/dL Assessment and Plan Assessment and plan (1) Hypertension: Code(s): I10 - Essential (primary) hypertension Status: Acute (2) Frequent falls: Code(s): R29.6 - Repeated falls Status: Acute Plan 89-year-old male with a history of kidney stones, hypertension. He arrives to [facility] ER by EMS on 03/19/2025 for 2 ground level falls. He lives with his daughter and there are other family members heavily involved in his ca re. 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 The patient was taking a shower. Usually uses a see but decided not to because he felt it was too slippery. He then put his right foot over his left foot and lost his balance he lowered himself to the shower floor. EMS was called and he was able to get up with her help. Later he felt weak and lowered himself to the floor again. EMS was summoned once again and he was brought to the ER. He denies any other symptoms reflecting illness. He has not been taking his furosemide for a month because he does not want to get up and urinate often. He was given this for kidney stones. He also takes allopurinol for that. In the ER his blood pressure is 132/80. Afebrile. The patient rested comfortably. Found have a white count of 10.6, sodium 129 with no baseline to compare. Urinalysis largely unremarkable except for 1+ leukocyte esterase but no bacteria nitrates. CT head performed did not demonstrate any acute findings. There is age related cerebral volume loss. On preliminary interpretation of knee x-ray and chest x-ray there is no acute findings. Patient was given 1 L of normal saline. Admitted for physical therapy and further disposition. ----- Recheck sodium after sodium chloride bolus. Could be due to dehydration. PT and OT evaluations. Patient wishes to be full code. SCDs. Fall precautions, ambulate with assistance. Hospitalist MIPS Advance Care Plan I have confirmed that the patient's Advanced Care Plan is present, code status is documented, or surrogate decision maker is listed in patient medical record.: Yes Medication Reconciliation I have utilized all available resources to obtain, update and review the patients current medications (includes all prescriptions, OTC, herbals, cannabis, and nutritional supplements).: Yes
[2025-03-19 05:59] VITALS: BP 150/76; PULSE 64; RESP 16; TEMP 36.6; O2SAT 97
[2025-03-19 06:47] LABS: Hematocrit 40.5 % (42.0-52.0); Hemoglobin 13.4 g/dL (14.0-18.0); Immature Granulocyte Percent A 0.7 % (0-0.5); Lymphocytes Absolute Auto 0.82 K/mm3 (0.9-3.2); Mean Corpuscular HGB Conc 33.1 g/dl (32-36); Mean Corpuscular Hemoglobin 31.5 pg (26-34); Mean Corpuscular Volume 95.1 fl (80-100); Nucleated Red Blood Cells Absolute Auto 0.000 K/mm3 (0.0-0.012); Nucleated Red Blood Cells Perc 0.0 % (0.0-0.2); Platelet Count Result 252 k/mm3 (150-375); Red Blood Count 4.26 M/mm3 (4.6-6.20); White Blood Count 8.4 K/mm3 (4.5-10.0)
[2025-03-19 07:08] LABS: Anion Gap 4 mmol/L (4-12); Blood Urea Nitrogen 11 mg/dL (9-20); Calcium 8.6 mg/dL (8.4-10.2); Carbon Dioxide 27 mmol/L (22-30); Chloride 103 mmol/L (98-107); Estimated CRCL calculation 71 ml/min; Estimated Glomerular Filt Rate > 60; Glucose 97 mg/dL (65-110); Magnesium 2.1 mg/dL (1.6-2.3); Potassium 3.6 mmol/L (3.4-5.0); Sodium 134 mmol/L (137-145)
--- NOTE | 2025-03-19 07:30 | P.PNIM_ITS ---
Progress Note: A&P Assessment and Plan (1) Frequent falls: Code(s): R29.6 - Repeated falls Status: Acute Assessment and Plan: Patient recently started using a wheelchair/walker at home due to lumbar spine disease, normally independent at baseline. Was taking a shower and had to slide down to the floor using the wall as he lost his footing, denies loss of consciousness or hitting his head. Called EMS and was able to get up, but later on felt weak again and had a lower self to the floor in a similar manner, called EMS and was brought to the ER. * Bilateral knee x-ray: Degenerative disease without acute fracture * Chest x-ray: No acute cardiopulmonary finding * Head CT: No acute intracranial hemorrhage or suspicious mass * PT/OT evaluation: Demonstrated decreased functional independence with functional mobility secondary to limitations with pain/strengths/balance/endurance * Recommend further rehab * Consult care coordination - patient open to SNF (2) Hip pain: Code(s): M25.559 - Pain in unspecified hip Status: Acute Assessment and Plan: Endorses bilateral hip pain on the lateral aspect of each side of the hips that started approximately 1 week ago without any known inciting incident/injury. Reports it has been severely painful upon ambulation for the past week. Upon examination, no crepitus or signs of instability/bruising. * Obtained bilateral hip x-ray -pending * Worked with PT/OT -endorsed significant pain relief after administration of p.r.n. pain medicine * Neurovascularly intact without abnormal reflexes of lower extremities (3) Hypertension: Code(s): I10 - Essential (primary) hypertension Status: Acute Assessment and Plan: * Patient's blood pressure was reviewed on 03/19 * Blood pressure remains well controlled. * Will continue current medications Subjective Date/time seen: 03/19/25 07:30 Interval history: 89-year-old male with a history of kidney stones, hypertension. He arrives to [facility] ER by EMS on 03/19/2025 for 2 ground level falls. He lives with his daughter and there are other family members heavily involved in his care. 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 03/19/2025 Patient sitting comfortably at bedside during examination. Just finished up with PT evaluation -states that he was able to transfer from bed to chair with assistance, but denies any hip pain. CBC and CMP grossly for any major acute changes. Imaging so far has been reassuring/negative. Will likely need placement to SNF upon discharge. Review of Systems Review of Systems: All systems reviewed & are unremarkable except as noted in HPI and below (HPI/subjective) Exam Const: General: comfortable and no acute distress Other: A&O x3 HENMT: Mouth: Yes moist mucous membranes Eyes: Pupils: Equal, round and reactive pupils present Neck: Neck: supple Resp: Effort & Inspection: normal respiratory effort Auscultation: clear to auscultation bilaterally Cardio: Rate: regular rate Rhythm: regular rhythm GI: Inspection: non-distended : General: Yes bladder normal to palpation Neuro: Cranial nerves: Yes Equal, round and reactive pupils present Other: Flexion at the hips 3/5 strength bilaterally limited by pain at the lower back which is chronic. Otherwise no focal deficits. Extrem: General: no edema Objective Data Vital Signs Vital Signs: Vital Signs - 24 hr 03/18/25 23:52 03/19/25 01:02 03/19/25 03:43 Temperature 97.1 F L Pulse Rate 83 80 78 Respiratory Rate 18 18 18 Blood Pressure 145/83 H 129/83 127/76 Pulse Oximetry 94 97 95 Oxygen Delivery Room Air 03/19/25 05:59 Temperature 97.8 F Pulse Rate 64 Respiratory Rate 16 Blood Pressure 150/76 H Pulse Oximetry 97 Oxygen Delivery Intake/Output Intake/Output: Intake & Output 03/16/25 03/17/25 03/18/25 03/19/25 23:59 23:59 23:59 23:59 Intake Total 1000 Output Total 200 Balance 800 Meds/Results Medications: Active Medications Generic Name Dose Route Start Last Admin Trade Name Freq PRN Reason Stop Dose Admin Acetaminophen 650 mg 03/19/25 05:37 Acetaminophen 325 Mg Tablet PO Q6H PRN Mild Pain (1-3) or Fever Hydrocodone Bitart/Acetaminophen 1 tab 03/19/25 05:37 Hydrocodone/Acetaminophen (*Crx) 5-325 Mg Tablet PO Q4H PRN Pain Rated 4-6 Radiology Results: ITS Impressions Knee X-Ray 03/19/25 06:29 IMPRESSION: Degenerative disease without acute fracture. Chest X-Ray 03/19/25 06:31 IMPRESSION: No focal infiltrate or effusion. Head CT 03/19/25 06:32 Impression: No acute intracranial hemorrhage or suspicious mass effect. Labs Labs: Laboratory Results - last 24 hr 03/18/25 03/19/25 03/19/25 23:59 00:13 06:33 WBC 10.6 H 8.4 RBC 4.48 L 4.26 L Hgb 14.0 13.4 L Hct 41.8 L 40.5 L MCV 93.3 95.1 MCH 31.3 31.5 MCHC 33.5 33.1 RDW 14.4 14.5 Plt Count 288 252 MPV 8.3 8.6 Immature Gran % (Auto) 0.8 H 0.7 H Neut % (Auto) 77.2 H 75.1 H Lymph % (Auto) 7.7 L 9.8 L Mcdonough % (Auto) 12.8 H 12.5 H Eos % (Auto) 1.2 1.5 Baso % (Auto) 0.3 0.4 Lymph # (Auto) 0.81 L 0.82 L Mcdonough # (Auto) 1.4 H 1.1 H Eos # (Auto) 0.1 0.1 Baso # (Auto) 0.0 0.0 Abs Immat Gran (auto) 0.08 H 0.06 H Absolute Neuts (auto) 8.2 H 6.3 Absolute Nucleated RBC 0.000 0.000 Nucleated RBC % 0.0 0.0 Sodium 129 L 134 L Potassium 4.2 3.6 Chloride 97 L 103 Carbon Dioxide 26 27 Anion Gap 6 4 BUN 16 11 D Creatinine 0.73 0.58 L Estim Creat Clear Calc 57 71 Estimated GFR > 60 > 60 Glucose 100 97 Calcium 9.3 8.6 Magnesium 2.1 Total Bilirubin 0.7 AST 34 ALT 36 Alkaline Phosphatase 141 H Total Creatine Kinase 118 Total Protein 6.8 Albumin 4.0 Urine Color Yellow Urine Appearance Clear Urine pH 6.0 Ur Specific Preston 1.018 Urine Protein Trace Urine Glucose (UA) Negative Urine Ketones Trace H Ur Blood (Man) Trace Urine Nitrate Negative Urine Bilirubin Negative Urine Urobilinogen 1.0 Leukocyte Esterase Rfl 1+ H Urine RBC 3-5 H Urine WBC 0-5 Ur Squamous Epith Cells None seen Urine Bacteria None seen Urine Casts 0-2 Quality VTE Prophylaxis VTE prophylaxis: mechanical ordered
[2025-03-19] MEDS: HYDROcodone/acetaminophen (*CRX) 5-325 MG TABLET 1 TAB PO ×2 (09:05→19:47)
[2025-03-19] MEDS: CYANOCOBALAMIN 1,000 MCG TABLET 5000 MCG PO (09:06)
[2025-03-19] MEDS: FUROSEMIDE 20 MG TABLET PO (09:07)
[2025-03-19 16:00] VITALS: BP 117/69; PULSE 66; RESP 18; TEMP 36.5; O2SAT 97
[2025-03-19 20:53] VITALS: BP 154/83; PULSE 66; RESP 17; TEMP 36.9; O2SAT 93
[2025-03-19 21:53] VITALS: PULSE 71; RESP 20; O2SAT 97
[2025-03-20 05:56] VITALS: BP 150/83; PULSE 65; RESP 16; TEMP 36.5; O2SAT 96
--- NOTE | 2025-03-20 07:46 | P.PNIM_ITS ---
Progress Note: A&P Assessment and Plan (1) Frequent falls: Code(s): R29.6 - Repeated falls Status: Acute Assessment and Plan: Patient recently started using a wheelchair/walker at home due to lumbar spine disease, normally independent at baseline. Was taking a shower and had to slide down to the floor using the wall as he lost his footing, denies loss of consciousness or hitting his head. Called EMS and was able to get up, but later on felt weak again and had a lower self to the floor in a similar manner, called EMS and was brought to the ER. * Bilateral knee x-ray: Degenerative disease without acute fracture * Chest x-ray: No acute cardiopulmonary finding * Hip/pelvis x-ray: No acute osseous finding in the pelvis or bilateral hips. * Head CT: No acute intracranial hemorrhage or suspicious mass * PT/OT evaluation: Demonstrated decreased functional independence with functional mobility secondary to limitations with pain/strengths/balance/endurance. Recommending SNF placement. * Consult care coordination - patient open to SNF (2) Hip pain: Code(s): M25.559 - Pain in unspecified hip Status: Acute Assessment and Plan: Endorses bilateral hip pain on the lateral aspect of each side of the hips that started approximately 1 week ago without any known inciting incident/injury. Reports it has been severely painful upon ambulation for the past week. * Hip/pelvis x-ray: No acute osseous finding in the pelvis or bilateral hips. * Lidocaine patch PRN * Worked with PT/OT - recommending SNF placement * Neurovascularly intact (3) Hypertension: Code(s): I10 - Essential (primary) hypertension Status: Acute Assessment and Plan: * Chronic, continue home medications * lisinopril 10 mg daily and lasix 20 mg daily * Blood pressure remain well controlled, continue to monitor Time Spent With Patient Time with patient: 25 - 35 minutes Subjective Date/time seen: 03/20/25 07:46 Interval history: 89 year old male with past medical history of kidney stones and hypertension presents to the hospital for multiple ground level falls. Patient is pleasant sitting up comfortably in his chair. He continues endorse hip pain but states that this has improved since admission. He notes that he previously received cortisone injections into the hip last Monday for ongoing sciatica issues. He has no other complaints denying chest pain, palpitations, shortness of breath, nausea/vomiting and abdominal pain. Care coordination following for SNF placement. Review of Systems Review of Systems: All systems reviewed & are unremarkable except as noted in HPI and below (HPI/subjective) Exam Narrative: AF HR 65 RR 16 SpO2 96 BP 150/83 General: male in no acute respiratory distress who is nontoxic appearing, sitting up in chair HEENT: Normocephalic. Atraumatic. Extraocular movement intact. Sclera clear and anicteric. No facial asymmetry. Chest: Lungs are clear to auscultation bilaterally. No wheezes or crackles. CV: Heart was regular rate and rhythm. S1/S2. No murmurs, gallops, or rubs. Abd: Abdomen was soft. Nontender. Nondistended. Positive bowel sounds. Ext: No clubbing, cyanosis, or edema. DP pulses bilaterally. Neuro: Patient is alert and oriented x3. Speech is clear. Objective Data Vital Signs Vital Signs: Vital Signs - 24 hr 03/19/25 12:01 03/19/25 16:00 03/19/25 20:53 Temperature 97.7 F 98.4 F Pulse Rate 66 66 Respiratory Rate 18 17 Blood Pressure 117/69 154/83 H Pulse Oximetry 97 93 Oxygen Delivery Room Air Fraction of Inspired Oxygen 03/19/25 21:53 03/20/25 05:56 Temperature 97.7 F Pulse Rate 71 65 Respiratory Rate 20 16 Blood Pressure 150/83 H Pulse Oximetry 97 96 Oxygen Delivery Room Air Fraction of Inspired Oxygen 21 Intake/Output Intake/Output: Intake & Output 03/17/25 03/18/25 03/19/25 03/20/25 23:59 23:59 23:59 23:59 Intake Total 2570 550 Output Total 2325 1000 Balance 245 -450 Meds/Results Medications: Active Medications Generic Name Dose Route Start Last Admin Trade Name Freq PRN Reason Stop Dose Admin Acetaminophen 650 mg 03/19/25 05:37 Acetaminophen 325 Mg Tablet PO Q6H PRN Mild Pain (1-3) or Fever Hydrocodone Bitart/Acetaminophen 1 tab 03/19/25 05:37 03/19/25 19:47 Hydrocodone/Acetaminophen (*Crx) 5-325 Mg Tablet PO 1 tab Q4H PRN Administration Pain Rated 4-6 Allopurinol 300 mg 03/19/25 09:00 07/30/25 09:07 Allopurinol 300 Mg Tablet PO 300 mg DAILY IRENE Administration Cyanocobalamin 5,000 mcg 03/19/25 09:00 03/19/25 09:06 Cyanocobalamin 1,000 Mcg Tablet PO 5,000 mcg DAILY IRENE Administration Furosemide 20 mg 03/19/25 09:00 03/19/25 09:07 Furosemide 20 Mg Tablet PO 20 mg DAILY IRENE Administration Lisinopril 10 mg 03/19/25 09:00 03/19/25 09:06 Lisinopril 10 Mg Tablet PO 10 mg DAILY IRENE Administration Radiology Results: ITS Impressions Knee X-Ray 03/19/25 06:29 IMPRESSION: Degenerative disease without acute fracture. Chest X-Ray 03/19/25 06:31 IMPRESSION: No focal infiltrate or effusion. Head CT 03/19/25 06:32 Impression: No acute intracranial hemorrhage or suspicious mass effect. Hip/Pelvis X-Ray 03/19/25 16:32 IMPRESSION: No acute osseous finding in the pelvis or bilateral hips. Quality VTE Prophylaxis VTE prophylaxis: mechanical ordered
[2025-03-20] MEDS: ACETAMINOPHEN 325 MG TABLET 650 MG PO (09:43)
[2025-03-20] MEDS: FUROSEMIDE 20 MG TABLET PO (09:47)
[2025-03-20] MEDS: CYANOCOBALAMIN 1,000 MCG TABLET 5000 MCG PO (09:47)
[2025-03-20] MEDS: LIDOCAINE 5% PATCH 1 PATCH TRANSDERM (12:14)
[2025-03-20 16:00] VITALS: BP 112/60; PULSE 73; RESP 18; TEMP 36.2; O2SAT 96
[2025-03-20 21:40] VITALS: PULSE 66; RESP 20; O2SAT 98
[2025-03-20 22:14] VITALS: BP 122/67; PULSE 67; RESP 12; TEMP 36.8; O2SAT 99
[2025-03-21] VITALS: BP 147/69; PULSE 67; RESP 20; TEMP 36.1; O2SAT 96
[2025-03-21 08:00] VITALS: BP 108/79; PULSE 87; RESP 18; TEMP 36.3; O2SAT 97
[2025-03-21] MEDS: CYANOCOBALAMIN 1,000 MCG TABLET 5000 MCG PO (09:44)
[2025-03-21] MEDS: FUROSEMIDE 20 MG TABLET PO (09:45)
[2025-03-21] MEDS: LIDOCAINE 5% PATCH 1 PATCH TRANSDERM (09:46)
--- NOTE | 2025-03-21 14:15 | P.DS_ITS ---
DS: Admitting Diagnosis Discharge Date 03/21/2025 Admitting Diagnosis Frequent falls DS: Discharge Diagnosis Discharge Diagnosis (1) Frequent falls: Code(s): R29.6 - Repeated falls Status: Acute (2) Hip pain: Code(s): M25.559 - Pain in unspecified hip Status: Acute (3) Hypertension: Code(s): I10 - Essential (primary) hypertension Status: Acute DS: Summary Hospital Course Reason for hospitalization: Two falls at home Hospital Course: 89-year-old male with a history of kidney stones, hypertension. He arrives to [facility] ER by EMS on 03/19/2025 for 2 ground level falls. He lives with his daughter and there are other family members heavily involved in his care. 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 The patient was taking a shower. Usually uses a see but decided not to because he felt it was too slippery. He then put his right foot over his left foot and lost his balance he lowered himself to the shower floor. EMS was called and he was able to get up with her help. Later he felt weak and lowered himself to the floor again. EMS was summoned once again and he was brought to the ER. He denies any other symptoms reflecting illness. He has not been taking his furosemide for a month because he does not want to get up and urinate often. He was given this for kidney stones. He also takes allopurinol for that. In the ER his blood pressure is 132/80. Afebrile. The patient rested comfortably. Found have a white count of 10.6, sodium 129 with no baseline to compare. Urinalysis largely unremarkable except for 1+ leukocyte esterase but no bacteria nitrates. CT head performed did not demonstrate any acute findings. There is age related cerebral volume loss. On preliminary interpretation of knee x-ray and chest x-ray there is no acute findings. Patient was given 1 L of normal saline. Admitted for physical therapy and further disposition. Patient continued to endorse hip pain throughout hospitalization but states that it did improved significantly since admission. States that he previously received cortisone injections into the hip last Monday for static issues. He denied having any other complaints such as chest pain, palpitations, shortness of breath, headache/dizziness, abdominal pain or nausea/vomiting. Care coordination was consulted regarding SNF placement, however PT/OT did not recommend any further rehab therapy as patient was able to walk the halls with minimal assistance. Patient already has home health services set up so he can be discharged home. Patient is otherwise hemodynamically stable with stable vital signs, blood work and physical exam. Patient does not require any further therapy and can be safely discharged home at this time as patient has therapy set up at home already. Patient is amenable to this plan and care coordination agrees with this plan as well. Time Spent with Patient Time attestation: Total time spent providing and/or coordinating discharge services: 37 Exam Narrative: AF HR 67 RR 20 SpO2 96 BP 147/69 General: male in no acute respiratory distress who is nontoxic appearing, sitting up in chair HEENT: Normocephalic. Atraumatic. Extraocular movement intact. Sclera clear and anicteric. No facial asymmetry. Chest: Lungs are clear to auscultation bilaterally. No wheezes or crackles. CV: Heart was regular rate and rhythm. S1/S2. No murmurs, gallops, or rubs. Abd: Abdomen was soft. Nontender. Nondistended. Positive bowel sounds. Ext: No clubbing, cyanosis, or edema. DP pulses bilaterally. Neuro: Patient is alert and oriented x3. Speech is clear. Const: General: comfortable and no acute distress Other: A&O x3 HENMT: Mouth: Yes moist mucous membranes Eyes: Pupils: Equal, round and reactive pupils present Neck: Neck: supple Resp: Effort & Inspection: normal respiratory effort Auscultation: clear to auscultation bilaterally Cardio: Rate: regular rate Rhythm: regular rhythm GI: Inspection: non-distended : General: Yes bladder normal to palpation Neuro: Cranial nerves: Yes Equal, round and reactive pupils present Other: Flexion at the hips 3/5 strength bilaterally limited by pain at the lower back which is chronic. Otherwise no focal deficits. Extrem: General: no edema Discharge Plan Discharge Attending physician on discharge: Rk Gerard Consulting providers: Hammad Liu; Stephanie Higuera Discharging Clinician: Hammad Liu Anticipated Discharge Date/Time: 03/21/25 13:54 Patient Disposition: Home with Home Health Service Activity: no straining and as tolerated Diet: heart healthy Discharge Instructions: Discharge disposition: Home Take medications as prescribed Monitor blood pressures Take caution while standing, rising, or moving Change positions slowly taking a break between each position change If you standing feel dizzy sit back down and take a break Encouraged to continue with yearly vaccinations Return to the emergency department if he developed sudden shortness of breath, chest pain, nausea, vomiting, upset stomach or intractable diarrhea Return to the emergency department if you develop fever greater than 101.5 Follow-up with the primary care physician within 1-2 weeks Thank you for [facility] for your healthcare needs Patient Instructions: Antibiotic Form Patient Language: Spanish Stand Alone Forms: General Discharge Information Follow-up/Referrals: Daniel,Alfonzo Anderson MD [Primary Care Provider] - Discharge Medications: Continued lisinopril 10 mg tablet 10 mg PO DAILY aspirin [Adult Aspirin Regimen] 81 mg tablet,delayed release (DR/EC) 81 mg PO DAILY allopurinol 300 mg tablet 300 mg PO DAILY furosemide 20 mg tablet 20 mg PO DAILY dorzolamide-timolol 22.3-6.8 mg/mL drops 1 drp RIGHT EYE .twice Discontinued mecobalamin (vitamin B12) 5,000 mcg lozenge 5,000 mcg PO DAILY Rx Instructions: allow to dissolve in mouth OR may chew lightly before swallowing Date of admission: 03/19/25 03:09 Primary Care Provider: Alfonzo Osborn Admitting Provider: Shameka Ferrari Attending physician on admission: Shameka Ferrari Condition: Stable Quality VTE Prophylaxis VTE prophylaxis: mechanical ordered
== END 2025-03-21 15:52 | disposition home health service (06) ==
LOC: ANHED 03-19 03:18 → ANH3MEDSUR 03-19 06:52
PROVIDERS: Registered Nurse; Admitting Provider General Practice; Emergency Provider Emergency Medicine; PCP Internal Medicine; Visit Provider Internal Medicine
DX: M25.552 Pain in left hip (principal); M25.551 Pain in right hip; R29.6 Repeated falls; W18.30XA Fall on same level, unspecified, initial encounter; I10 Essential (primary) hypertension; Z87.442 Personal history of urinary calculi; Z87.891 Personal history of nicotine dependence
CPT/HCPCS: 36415; 70450; 71046; 73521; 73562; 80048; 80053; 81001; 82550; 83735; 85025; 87086; 93005; 96360; 97110; 97116; 97162; 97165; 97530; 97535; 99285; A9270; G0378; J7030